=== PATIENT | female | born 1985 | race Caucasian/White ===

== ENCOUNTER 2020-01-23 13:31 | Outpatient (REF) | payer OTHER, SELFPAY ==
[2020-01-23 16:41] LABS: MANUAL DIFF FLAG NO
[2020-01-23 16:46] LABS: Basophils Percent Auto 0.5 % (0-2); Eosinophils Absolute Auto 0.1 X10*3/uL (0.0-0.4); Eosinophils Percent Auto 1.9 % (0-4); Hematocrit 44.2 % (37-47); Hemoglobin 14.5 g/dl (12.0-16.0); Imm Gran Abs Auto 0.03 X10*3/uL (0.00-0.03); Imm Gran Pct Auto 0.5 % (0.0-0.4); Lymphocytes Absolute Auto 1.8 X10*3/uL (1.2-4.9); Lymphocytes Percent Auto 31.1 % (20-40); Mean Corpuscular HGB Conc 32.8 g/dl (31.0-35.0); Mean Corpuscular Hemoglobin 29.3 pg (27.0-33.0); Mean Corpuscular Volume 89.3 fL (80-98); Mean Platelet Volume 9.6 fL (9.4-12.3); Monocytes Absolute Auto 0.3 X10*3/uL (0.1-1.2); Monocytes Percent Auto 5.9 % (2-11); Neutrophils Absolute Auto 3.5 X10*3/uL (2.0-8.3); Neutrophils Percent Auto 60.1 % (45-73); Platelet Count 238 X10*3/uL (160-400); Red Blood Count 4.95 X10*6/uL (4.20-5.50); Red Cell Distribution Width 11.9 % (11.0-16.0); White Blood Count 5.8 X10*3/uL (4.8-10.8)
[2020-01-23 17:11] LABS: Alanine Aminotransferase 18 U/L (0-31); Albumin Level 4.2 g/dL (3.5-5.0); Alkaline Phosphatase 63 U/L (39-117); Anion Gap 11 (12-20); Aspartate Amino Transferase 19 U/L (5-31); Bilirubin Total 0.5 mg/dL (0.0-1.0); Blood Urea Nitrogen 8 mg/dL (9-16); Calcium 8.4 mg/dL (8.4-10.2); Carbon Dioxide 29 mmol/L (22-29); Chloride 105 mmol/L (96-108); Estimated Glomerular Filt Rate > 60; Glucose Random 81 mg/dL (60-115); Potassium 4.3 mmol/l (3.3-5.1); Sodium 141 mmol/L (135-145); Total Protein 7.1 g/dL (6.5-8.0)
[2020-01-23 17:31] LABS: T4 Thyroxine 10.4 ug/dL (4.5-12.0); Thyroid Stimulating Hormone 1.07 uIU/mL (0.32-4.0)
== END 2020-01-23 13:32 | disposition home or self-care (01) ==
LOC: HO.HMGCLDS 13:31
PROVIDERS: PCP Internal Medicine; Visit Provider Internal Medicine
DX: E03.9 Hypothyroidism, unspecified (principal); Z00.00 Encounter for general adult medical examination without abnormal findings; J45.909 Unspecified asthma, uncomplicated
CPT/HCPCS: 36415; 80053; 84436; 84443; 85025

== ENCOUNTER 2020-08-07 17:09 | Outpatient (REF) | payer OTHER, SELFPAY ==
--- NOTE | ~2020-08-07 | XR_ITS ---
EXAMINATION: XR thoracic spine 3V, XR lumbar spine 2-3V, XR cervical spine 3V CLINICAL INFORMATION: Dorsalgia. COMPARISON: None. TECHNIQUE: AP, lateral and open-mouth views of the cervical spine. AP and lateral thoracic spine with swimmer's views. Lumbosacral spine 3 views. FINDINGS: CERVICAL SPINE: Alignment is normal. No bony abnormality is seen. Vertebral body heights are maintained. Disc spaces are well-maintained. No evidence for facet arthropathy. The prevertebral soft tissues are normal. THORACIC SPINE: Normal alignment. No bony abnormality. Vertebral body heights are maintained. Disc spaces are normal. The paravertebral soft tissues are unremarkable. LUMBOSACRAL SPINE: 3 views of lumbosacral spine are also normal. Normal alignment. Vertebral body heights are maintained. Posterior elements are intact. Disc spaces are normal. The paravertebral soft tissues are normal. The sacroiliac joints are unremarkable in appearance. XR/XR lumbar spine 2-3V IMPRESSION: Normal examination.
--- NOTE | ~2020-08-07 | XR_ITS ---
EXAMINATION: XR thoracic spine 3V, XR lumbar spine 2-3V, XR cervical spine 3V CLINICAL INFORMATION: Dorsalgia. COMPARISON: None. TECHNIQUE: AP, lateral and open-mouth views of the cervical spine. AP and lateral thoracic spine with swimmer's views. Lumbosacral spine 3 views. FINDINGS: CERVICAL SPINE: Alignment is normal. No bony abnormality is seen. Vertebral body heights are maintained. Disc spaces are well-maintained. No evidence for facet arthropathy. The prevertebral soft tissues are normal. THORACIC SPINE: Normal alignment. No bony abnormality. Vertebral body heights are maintained. Disc spaces are normal. The paravertebral soft tissues are unremarkable. LUMBOSACRAL SPINE: 3 views of lumbosacral spine are also normal. Normal alignment. Vertebral body heights are maintained. Posterior elements are intact. Disc spaces are normal. The paravertebral soft tissues are normal. The sacroiliac joints are unremarkable in appearance. XR/XR thoracic spine 3V IMPRESSION: Normal examination.
--- NOTE | ~2020-08-07 | XR_ITS ---
EXAMINATION: XR thoracic spine 3V, XR lumbar spine 2-3V, XR cervical spine 3V CLINICAL INFORMATION: Dorsalgia. COMPARISON: None. TECHNIQUE: AP, lateral and open-mouth views of the cervical spine. AP and lateral thoracic spine with swimmer's views. Lumbosacral spine 3 views. FINDINGS: CERVICAL SPINE: Alignment is normal. No bony abnormality is seen. Vertebral body heights are maintained. Disc spaces are well-maintained. No evidence for facet arthropathy. The prevertebral soft tissues are normal. THORACIC SPINE: Normal alignment. No bony abnormality. Vertebral body heights are maintained. Disc spaces are normal. The paravertebral soft tissues are unremarkable. LUMBOSACRAL SPINE: 3 views of lumbosacral spine are also normal. Normal alignment. Vertebral body heights are maintained. Posterior elements are intact. Disc spaces are normal. The paravertebral soft tissues are normal. The sacroiliac joints are unremarkable in appearance. XR/XR cervical spine 3V IMPRESSION: Normal examination.
== END 2020-08-07 17:10 | disposition home or self-care (01) ==
LOC: HO.XRAY 17:09
PROVIDERS: PCP Internal Medicine; Visit Provider Internal Medicine
DX: M54.9 Dorsalgia, unspecified (principal)
CPT/HCPCS: 72040; 72072; 72100

== ENCOUNTER 2020-09-19 17:00 | Outpatient (RCR) | payer OTHER, SELFPAY ==
--- NOTE | 2020-09-05 18:04 | MHC.PT.EP ---
[facility] [place] Office [place] Office [place] Office [address] [phone] F: [phone] F: [phone] F: [phone] F: [phone] Physical Therapy Plan of Care Date of Evaluation: Date of Surgery: Diagnosis: This is a 35 yo female presenting to skilled PT with a script for pain in t-spine. Assessment: This is a 35 yo female presenting to skilled PT with a script for pain in t-spine. Pain started 3 years ago when patient reports her back went out when looking down in standing. Since then this happens once or twice a year and pain is debilitating for a few days following. Pain is usually central at thoracic spine and is described as burning. It then radiates to the front/ribs and described as stabbing. Pain alleviates itself with stretching after a few days and she has no pain at eval today or since the last incident a month ago when lifting a plastic bowl. Assessment reveals pain that is not present at eval but can be debilitating. She demos decreased thoracic ROM but WNL UE and lumbar ROM, decreased scap stab and UB strength and decreased thoracic joint mobility. She is a good candidate for skilled PT 2x/wk for 5wks in order to improve strength, improve thoracic mobility and reduce the occurrence of debilitating pain. Frequency and Duration: The patient will be seen 2x/wk for 5wks Short Term Goals: I in HEP Proper scap set without cuing from PT Touch Up Painter Hand Goals: Patient will demo proper squatting and lifting techniques without pain or cuing Patient will demo WNL ROM and strength Good thoracic joint mobility with mobilization No occurrence of pain for 4 weeks Treatment Plan: Modalities to reduce pain, spasms and effusion. Manual therapy to restore motion and function. Therapeutic exercise to improve strength and flexibility. Neuromuscular re-education for posture and balance. Therapeutic activities to return to functional activities of daily living. Electronically signed by: Leatha Navarrete PT Please sign and return to therapist. Thank you for your referral.
--- NOTE | 2020-09-26 17:24 | MHC.PT.DC ---
[facility] [place] Office [place] Office [place] Office [address] [phone] F: [phone] F: [phone] F: [phone] F: [phone] Physical Therapy Discharge Report Diagnosis: This is a 35 yo female presenting to skilled PT with a script for pain in t-spine. Date of Surgery: Date of Evaluation: 09/05/20 Date of Discharge: 09/26/20 Treatments to Date: 2 Cancellations to Date: 0 No Shows to Date: 0 Discharge Status: Achieved Goals Improved Function Independent with HEP Patient Elected to Stop Discharge Summary: Patient without any pain throughout the session. Updated HEP and provided printouts at the last tx. Plan was to trial prone work next session however patient called and reported no pain and would like to DC at this time. DC to HEP Electronically signed by: Leatha Navarrete PT Please sign and return to therapist. Thank you for your referral.
== END 2020-09-26 17:25 | disposition home or self-care (01) ==
LOC: HO.PTCHIC 17:00
PROVIDERS: PCP Internal Medicine; Visit Provider Internal Medicine
DX: M54.6 Pain in thoracic spine (principal)
CPT/HCPCS: 97110; 97162

== ENCOUNTER 2021-04-24 10:03 | Outpatient (REF) | payer OTHER, SELFPAY ==
[2021-04-24 11:18] LABS: Appearance Urine CLOUDY; Color Urine YELLOW; Glucose Urine UA NEG (NEG); Leukocyte Esterase Urine TRACE (NEG); Nitrite Urine NEG (NEG); UACC Culture Trigger YES; Urine Blood TRACE (NEG); Urine Ketones NEG (NEG); Urine Protein TRACE MG/DL (NEG-TRACE)
[2021-04-24 11:44] LABS: Bacteria Urine 3+ /LPF; Squamous Epithelial Cell Urine 4+ /LPF
== END 2021-04-24 10:04 | disposition home or self-care (01) ==
LOC: HO.LAB 10:03
PROVIDERS: PCP Internal Medicine; Visit Provider Internal Medicine
DX: R30.0 Dysuria (principal)
CPT/HCPCS: 81001; 87086; 87088; 87186

== ENCOUNTER 2021-09-23 10:58 | Outpatient (REF) | payer OTHER, SELFPAY ==
[2021-09-23 11:25] LABS: Binax Internal Control QC Valid; Binax Now Covid-19 Ag Negative (Negative)
== END 2021-09-23 10:59 | disposition home or self-care (01) ==
LOC: HO.HMGCLDS 10:58
PROVIDERS: PCP Internal Medicine; Visit Provider Physician Assistant
DX: Z20.822 Contact with and (suspected) exposure to COVID-19 (principal); J06.9 Acute upper respiratory infection, unspecified
CPT/HCPCS: 87811; C9803

== ENCOUNTER → 2021-12-13 10:04 | Outpatient (REF) | payer OTHER, SELFPAY ==
--- NOTE | 2021-12-13 10:06 | CA_ITS ---
Acquisition Time: 2021-12-13 10:20:52 Total Exercise Time: 00:07:11 Test Indications: Chest Pain Medications: Protocol: RADHA Max HR: 181 BPM 98% of Pred: 183 BPM Max BP: 124/066 mmHG Max Work Load: 8.6 METS Exercise stress test with exercise 7 min 11 sec of Radha protocol, achieving 98% MPHR, 8.6 METs, with fatigue and request to stop, without anginal symptoms, with rare isolated PVC, with normotensive response to exercise, without EKG changes meeting criteria for ischemia. Test reviewed with Dr Ramos. Referred By: Humaira Maria Overread By: SHANELLE CARRASQUILLO
[2021-12-13 10:57] LABS: MANUAL DIFF FLAG NO
[2021-12-13 11:44] LABS: Basophils Percent Auto 0.5 % (0-2); Eosinophils Absolute Auto 0.1 X10*3/uL (0.0-0.4); Eosinophils Percent Auto 1.2 % (0-4); Hemoglobin 14.3 g/dl (12.0-16.0); Imm Gran Abs Auto 0.05 X10*3/uL (0.00-0.03); Imm Gran Pct Auto 0.6 % (0.0-0.4); Lymphocytes Absolute Auto 3.1 X10*3/uL (1.2-4.9); Lymphocytes Percent Auto 34.8 % (20-40); Mean Corpuscular Hemoglobin 28.6 pg (27.0-33.0); Mean Platelet Volume 9.3 fL (9.4-12.3); Monocytes Absolute Auto 0.6 X10*3/uL (0.1-1.2); Monocytes Percent Auto 6.4 % (2-11); Neutrophils Percent Auto 56.5 % (45-73); Platelet Count 280 X10*3/uL (160-400); Red Cell Distribution Width 12.3 % (11.0-16.0); White Blood Count 8.9 X10*3/uL (4.8-10.8)
[2021-12-13 11:56] LABS: Appearance Urine Turbid; Color Urine Yellow; Glucose Urine UA Negative (Negative); Leukocyte Esterase Urine Large (3+) (Negative); Nitrite Urine Negative (Negative); Specific Gravity - Urine 1.015 (1.005-1.025); UMIC TRIGGER UACC YES; Urine Blood Negative (Negative); Urine Ketones Negative (Negative); Urine Protein Negative (Neg-Trace)
[2021-12-13 12:04] LABS: Bacteria Urine 4+ (None Seen); RBC Urine 0-2 /HPF (0-2); Squamous Epithelial Cell Urine >20 /HPF (0-2); UACC Culture Trigger YES; WBC Urine 21-50 /HPF (0-5)
[2021-12-13 12:25] LABS: Alanine Aminotransferase 46 U/L (0-31); Albumin Level 4.3 g/dL (3.5-5.0); Alkaline Phosphatase 82 U/L (39-117); Anion Gap 16 (12-20); Aspartate Amino Transferase 22 U/L (5-31); Bilirubin Total 0.6 mg/dL (0.0-1.0); Blood Urea Nitrogen 9 mg/dL (9-16); Calcium 9.2 mg/dL (8.4-10.2); Carbon Dioxide 23 mmol/L (22-29); Chloride 104 mmol/L (96-108); Cholesterol 217 mg/dL; Estimated Glomerular Filt Rate > 60; Glucose Random 93 mg/dL (60-115); HDL Cholesterol 41 mg/dL; LDL Cholesterol Calculated 140 mg/dl; Potassium 4.4 mmol/L (3.3-5.1); Sodium 139 mmol/L (135-145); Total Protein 7.3 g/dL (6.5-8.0); Triglycerides 184 mg/dL; Uric Acid 4.8 mg/dL (2.4-5.7)
[2021-12-13 12:33] LABS: Free T4 (Free Thyroxine) 1.22 ng/dL (0.71-1.85); Vitamin D 25-OH Total 24.7 ng/mL (>30)
[2021-12-13 13:03] LABS: Folate 13.3 ng/mL (> or = 4.0); Vitamin B12 240 pg/mL (200-900)
== END ==
LOC: HO.CARD 10:04
PROVIDERS: PCP Internal Medicine; Visit Provider Internal Medicine
DX: R07.9 Chest pain, unspecified (principal); M10.9 Gout, unspecified; E03.9 Hypothyroidism, unspecified; K21.9 Gastro-esophageal reflux disease without esophagitis; E78.00 Pure hypercholesterolemia, unspecified
CPT/HCPCS: 36415; 80053; 80061; 81001; 82306; 82607; 82746; 84439; 84443; 84550; 85025; 87086; 93017

== ENCOUNTER 2021-12-27 09:36 | Outpatient (REF) | payer OTHER, SELFPAY ==
--- NOTE | ~2021-12-27 | US_ITS ---
EXAMINATION: US ABDOMEN COMPLETE CLINICAL INFORMATION: Elevated liver function tests. COMPARISON: None TECHNIQUE: Real-time imaging of the abdominal viscera. FINDINGS: PANCREAS: Normal. ABDOMINAL AORTA: The proximal, mid, and distal segments are normal in caliber. INFERIOR VENA CAVA: Visualized portions are normal. LIVER: Diffusely increased hepatic echogenicity. The liver is normal in size. The liver contour is normal. No focal hepatic lesion. There is no intrahepatic biliary duct dilatation seen. GALLBLADDER: Normal. The gallbladder is physiologically distended without evidence of stones, sludge, polyps, wall thickening or pericholecystic fluid. COMMON BILE DUCT: Normal in caliber measuring 0.2 cm in diameter. RIGHT KIDNEY: Normal. No hydronephrosis. No renal calculi or focal parenchymal lesions. The kidney measures 10.0 cm in maximum dimension. LEFT KIDNEY: Normal. No hydronephrosis. No renal calculi or focal parenchymal lesions. The kidney measures 10.3 cm in maximum dimension. SPLEEN: Normal. The spleen measures 7.9 cm in maximum dimension. FREE FLUID: None. US/US abdomen complete IMPRESSION: Mild but diffusely increased hepatic echogenicity suggesting diffuse hepatic steatosis. No biliary ductal dilatation.
== END 2021-12-27 09:37 | disposition home or self-care (01) ==
LOC: HO.HMGCX 09:36
PROVIDERS: PCP Internal Medicine; Visit Provider Internal Medicine
DX: R79.89 Other specified abnormal findings of blood chemistry (principal)
CPT/HCPCS: 76700

== ENCOUNTER 2022-06-10 13:05 | Outpatient (REF) | payer OTHER, SELFPAY | END 2022-06-10 13:06 | disposition home or self-care (01) | LOC: HO.SH 13:05 | PROVIDERS: Visit Provider Internal Medicine | DX: H90.A31 Mixed conductive and sensorineural hearing loss, unilateral, right ear with restricted hearing on the contralateral side (principal); H90.A12 Conductive hearing loss, unilateral, left ear with restricted hearing on the contralateral side | CPT/HCPCS: 92557; 92567 ==

== ENCOUNTER 2022-09-02 16:13 | Outpatient (REF) | payer OTHER, SELFPAY ==
--- NOTE | ~2022-09-02 | US_ITS ---
EXAMINATION: US LOWER EXTREMITY, NONVASCULAR, RIGHT CLINICAL INFORMATION: Right lower extremity mass at the level of the knee. COMPARISON: None available. TECHNIQUE: High-frequency linear ultrasound transducer was used to examine the area of clinical concern as pointed out by the patient. FINDINGS: There is a small hyperechoic 5 x 6 x 7 mm mass in the subcutaneous tissue. Differential would include a lipoma versus a hematoma. No other abnormality is seen. US/US extremity nonvascular IMPRESSION: Small hyperechoic mass as described above. If there is clinical concern, MRI could always be performed for better characterization.
== END 2022-09-02 16:14 | disposition home or self-care (01) ==
LOC: HO.US 16:13
PROVIDERS: PCP Internal Medicine; Visit Provider Nurse Practitioner Family
DX: R22.41 Localized swelling, mass and lump, right lower limb (principal)
CPT/HCPCS: 76882

== ENCOUNTER 2022-09-26 16:02 | Outpatient (AMB) | payer OTHER, SELFPAY ==
[2022-09-26 16:02] VITALS: BP 122/74; PULSE 68; O2SAT 98; BMI 31.6
--- NOTE | 2022-09-26 16:02 | A.OFFPC_ITS ---
Vital Signs 09/26/22 16:02 Height 5 ft 2 in Weight 173 lb BMI 31.6 BP 122/74 Blood Pressure Location Lt brachial Position Sitting Pulse 68 Pulse Source Pulse Oximeter Pulse Oximetry (%) 98 Oxygen Delivery Method Room Air Intake Visit Reasons: Rash under belly, bilateral feet pain, hypothyroid, ASthma Allergies Iodinated Contrast Media [IV CONTRAST] Allergy (Severe, Verified 09/26/22 16:02) ANAPHYLAXIS iodine Allergy (Unknown, Verified 09/26/22 16:02) Hives CT Scan Dye Allergy (Unknown, Uncoded 09/26/22 16:02) Hives dust mite Allergy (Unknown, Uncoded 09/26/22 16:02) Itching Medication List - Last Reconciled 09/26/22 by Humaira Maria, albuterol sulfate 90 mcg/actuation (ProAir HFA) 2 puffs inhalation Q6H PRN cyclobenzaprine 5 mg PO BEDTIME PRN diazepam 2 mg PO BID PRN fluticasone propionate 110 mcg/actuation (Flovent HFA) 1 puff inhalation BID meloxicam 15 mg PO DAILY 90 days sumatriptan succinate (Imitrex) 50 mg orally QD PRN; Synthroid (levothyroxine) 100 mcg PO DAILY 90 days NS Tobacco use date assessed: 03/28/22 Dental Screening Dental Screen Date: 09/26/22 Did you have a dental visit in the last 12 months?: Yes Did you have a dental problem in the last 6 months where you did not have access to dental care?: No Was dental information given to patient?: Patient has dentist HPI hypothyroid, ASthma HPI Details 37-year-old obese female with migraine, hypothyroidism asthma fatty liver hypercholesterolemia B12 deficiency vitamin-D deficiency GERD last seen Fe rust2022 patient had physical at that time. Blood work was requested.. Review of the notes recently had right lower extremity mass and an ultrasound was done revealing a subcutaneous tissue mass and a question of lipoma versus hematoma. Patient also had a recent hearing test which showed sensorineural hearing loss and has recommended hearing aid. Patient was also seen in April for upper back pain muscular and was prescribed a muscle relaxant.. Patient states that the back has resolved, as for mass on the right posterior knee resolving and no pain. Patient complains of pain on the feet underneath deny any fall or trauma also have a rash on abdominal fold. [facility] Medical History Anxiety and depression Chest pain GERD (gastroesophageal reflux disease) History of Hypothyroid LFT elevation Migraine Overweight (BMI 25.0-29.9) Thoracic back pain Surgical History H/O eye surgery History of stapedectomy Family History (Updated 09/26/22 @ 16:03 by Nayely Javier, [facility]) Maternal Aunt Heart attack Thyroid cancer Sister Age: 43 Breast cancer, Onset Age: 36 Father Alcohol abuse Mental health disorder Substance use disorder Social History Housing: House Alcohol intake: current Alcohol intake frequency: holidays/special occasions only Patient Tobacco Use Status: Never used Tobacco e-Cigarette/Vaping Use: Never Used Second Hand Smoke Exposure: No service: No Current occupational status: employed Current occupational exposures/hazards: No Cognitive needs: No Hearing needs: No Vision needs: No Questionnaire PHQ-9 Over the last 2 weeks, how often have you been bothered by any of the following problems? 1. Little interest or pleasure in doing things: not at all 2. Feeling down, depressed, or hopeless: not at all 3. Trouble falling or staying asleep, or sleeping too much: not at all 4. Feeling tired or having little energy: not at all 5. Poor appetite or overeating: not at all 6. Feeling bad about yourself - or that you are a failure or have let yourself or your family down: not at all 7. Trouble concentrating on things, such as reading the newspaper or watching television: not at all 8. Moving or speaking so slowly that other people could have noticed. Or the opposite - being so fidgety or restless that you have been moving around a lot more than usual: not at all (nighttime ) 9. Thoughts that you would be better off or of hurting yourself in some way: not at all Total score: 0 Depression Screening Interpretation: Negative 18315 - PHQ-9 Billing: Yes Source: Developed by Drs. Jluis Mcmillan, Rose Mary Vargas, Killian Delong and colleagues, with an educational debo from [employer]is Bittar. Thrive Questionnaire Date Thrive assessed: 04/28/22 AUDIT C Alcohol Use Questionnaire (AUDIT-C) 1. How often do you have a drink containing alcohol?: Never 3. How often do you have six or more drinks on one occasion?: Never Total Score: 0 PATEL-7 AMB Questionnaire PATEL-7 Date PATEL - 7 assessed: 04/28/22 Source: Developed by Drs. Jluis Mcmillan, Rose Mary Vargas, Killian Delong and colleagues, with an educational debo from Alexis Bittar. Physical exam (Primary Care) Vital Signs: Last Vital Signs Pulse 68 09/26/22 16:02 BP 122/74 09/26/22 16:02 Pulse Ox 98 09/26/22 16:02 Oxygen Delivery Method Room Air 09/26/22 16:02 BMI result Body Mass Index 31.6 Tobacco/Smoking Status: Tobacco use Status Tobacco use date assessed 03/28/22 09/26/22 16:06 Patient Tobacco Use Status Never used Tobacco 09/26/22 16:06 e-Cigarette/Vaping Use Never Used 09/26/22 16:06 PHQ-9: PHQ-9 Score PHQ-9: Total score 0 09/26/22 16:06 Depression Screening Interpretation: Negative Thrive Assessment: Date of Thrive Assessment Date Thrive assessed 04/28/22 09/26/22 16:06 Const General: alert; No acute distress Eyes Conjunctivae: conjunctivae normal Resp Auscultation: clear to auscultation bilaterally Cardio Rate: regular rate Rhythm: regular rhythm GI Inspection: Yes normal to inspection Extrem General: Yes normal to inspection and No edema Assessment and Plan Assessment & Plan (1) Localized swelling, mass and lump, right lower limb: Comment: Hematoma versus lipoma Code(s): R22.41 - Localized swelling, mass and lump, right lower limb Plan: Mass is getting smaller, reassurance (2) Low back pain: Code(s): M54.50 - Low back pain, unspecified Plan: Resolved (3) Migraine: Code(s): G43.909 - Migraine, unspecified, not intractable, without status migrainosus Plan: Stable (4) Hypercholesterolemia: Code(s): E78.00 - Pure hypercholesterolemia, unspecified Plan: Avoid fried foods, chicken skin, eggs, butter margarine, pastries and meat. Be it pork or beef they have a lot of cholesterol reminded about blood work LDL goal of less than 130 and triglyceride of less than 150 (5) Fatty liver: Code(s): K76.0 - Fatty (change of) liver, not elsewhere classified Plan: Low-fat diet and exercise (6) Hypothyroid: Code(s): E03.9 - Hypothyroidism, unspecified Qualifiers: Hypothyroidism type: acquired Qualified Code(s): E03.9 - Hypothyroidism, unspecified Plan: Continue with thyroid medication advised blood work to be done (7) Asthma: Code(s): J45.909 - Unspecified asthma, uncomplicated Qualifiers: Asthma severity: mild Asthma persistence: intermittent Asthma complication type: uncomplicated Qualified Code(s): J45.20 - Mild intermittent asthma, uncomplicated Plan: Continue with inhaler as needed controlled (8) GERD (gastroesophageal reflux disease): Code(s): K21.9 - Gastro-esophageal reflux disease without esophagitis Qualifiers: Esophagitis presence: without esophagitis Qualified Code(s): K21.9 - Gastro-esophageal reflux disease without esophagitis Plan: Avoid the foods that causes that usually spicy foods, tomato products, juices, coffee, soda and foods that your sensitive to. After eating do not lie down, allow 3-4 hours before in lie down. And keep the head of bed above 30 degrees to avoid the acid from going up. (9) Hearing deficit: Comment: Speech and hearing 2022 Code(s): H91.90 - Unspecified hearing loss, unspecified ear Plan: Patient has just had a test and the asking for ENT medical clearance (10) Tinea corporis: Code(s): B35.4 - Tinea corporis Plan: Cream and antifungal powder sent in (11) Plantar fasciitis: Code(s): M72.2 - Plantar fascial fibromatosis Plan: Information about plantar fasciitis given, conservative treatment of exercises Orders: Referrals Ear/Nose/Throat Referral H91.90 - Unspecified hearing loss, unspecified ear Medications: New clotrimazole 1% 1 appl topical BID 4 weeks 45 grams 0RF B35.4 - Tinea corporis miconazole nitrate 2% (Zeasorb AF) 1 appl topical BID 85 grams 0RF B35.4 - Tinea corporis Coding Level of Care Code Est Pt Level 4 (36273) Diagnoses Localized swelling, mass and lump, right lower limb R22.41 Low back pain M54.50 Migraine G43.909 Hypercholesterolemia E78.00 Fatty liver K76.0 Hypothyroid E03.9 Hypothyroidism type: acquired Asthma J45.20 Asthma severity: mild Asthma persistence: intermittent Asthma complication type: uncomplicated GERD (gastroesophageal reflux disease) K21.9 Esophagitis presence: without esophagitis Hearing deficit H91.90 Tinea corporis B35.4 Plantar fasciitis M72.2
== END 2022-09-26 16:34 | disposition home or self-care (01) ==
PROVIDERS: PCP Internal Medicine; Visit Provider Internal Medicine
DX: R22.41 Localized swelling, mass and lump, right lower limb (principal); G43.909 Migraine, unspecified, not intractable, without status migrainosus; E03.9 Hypothyroidism, unspecified; J45.20 Mild intermittent asthma, uncomplicated
CPT/HCPCS: 99214

== ENCOUNTER 2022-09-26 16:30 | Outpatient (REF) | payer OTHER, SELFPAY ==
[2022-09-26 18:22] LABS: Alanine Aminotransferase 19 U/L (0-31); Albumin Level 4.1 g/dL (3.5-5.0); Alkaline Phosphatase 74 U/L (39-117); Anion Gap 15 (12-20); Aspartate Amino Transferase 18 U/L (5-31); Bilirubin Total 0.5 mg/dL (0.0-1.0); Blood Urea Nitrogen 8 mg/dL (9-16); Calcium 9.2 mg/dL (8.4-10.2); Carbon Dioxide 23 mmol/L (22-29); Chloride 107 mmol/L (96-108); Cholesterol 183 mg/dL; Estimated Glomerular Filt Rate > 60; Glucose Random 79 mg/dL (60-115); HDL Cholesterol 43 mg/dL; LDL Cholesterol Calculated 126 mg/dl; Potassium 3.7 mmol/L (3.3-5.1); Sodium 141 mmol/L (135-145); Total Protein 7.1 g/dL (6.5-8.0); Triglycerides 71 mg/dL
[2022-09-26 18:31] LABS: Free T4 (Free Thyroxine) 1.05 ng/dL (0.71-1.85); Thyroid Stimulating Hormone 2.62 uIU/mL (0.32-4.0); Vitamin D 25-OH Total 24.2 ng/mL (>30)
[2022-09-26 18:47] LABS: Folate 12.5 ng/mL (> or = 4.0); Vitamin B12 325 pg/mL (200-900)
== END 2022-09-26 16:31 | disposition home or self-care (01) ==
LOC: HO.LAB 16:30
PROVIDERS: PCP Internal Medicine; Visit Provider Internal Medicine
DX: E78.00 Pure hypercholesterolemia, unspecified (principal); E53.8 Deficiency of other specified B group vitamins
CPT/HCPCS: 36415; 80053; 80061; 82306; 82607; 82746; 84439; 84443

== ENCOUNTER 2023-04-03 16:17 | Outpatient (AMB) | payer OTHER, SELFPAY ==
--- NOTE | 2023-04-03 16:26 | A.OFFPC_ITS ---
Vital Signs 04/03/23 16:27 Height 5 ft 2 in Weight 192 lb BMI 35.1 BP 102/70 Blood Pressure Location Lt brachial Position Sitting Pulse 75 Pulse Source Pulse Oximeter Pulse Oximetry (%) 98 Oxygen Delivery Method Room Air Intake Visit Reasons: Annual exam Allergies Iodinated Contrast Media [IV CONTRAST] Allergy (Severe, Verified 09/26/22 16:02) ANAPHYLAXIS iodine Allergy (Unknown, Verified 09/26/22 16:02) Hives CT Scan Dye Allergy (Unknown, Uncoded 09/26/22 16:02) Hives dust mite Allergy (Unknown, Uncoded 09/26/22 16:02) Itching Medication List - Last Reconciled 04/03/23 by Humaira Maria MD albuterol sulfate 90 mcg/actuation (ProAir HFA) 2 puffs inhalation Q6H PRN clotrimazole 1% 1 appl topical BID 4 weeks cyclobenzaprine 5 mg PO BEDTIME PRN diazepam 2 mg PO BID PRN fluticasone propionate 110 mcg/actuation (Flovent HFA) 1 puff inhalation BID meloxicam 15 mg PO DAILY 90 days miconazole nitrate 2% (Zeasorb AF) 1 appl topical BID sumatriptan succinate (Imitrex) 50 mg orally QD PRN; Synthroid (levothyroxine) 100 mcg PO DAILY 90 days NS Tobacco use date assessed: 03/28/22 [facility] Annual exam HPI Details 38-year-old obese female with a history of hypercholesterolemia fatty liver hypothyroidism asthma GERD and migraine coming in for physical exam last seen in September 2022. Noted 20 lb weight gain. complains of having more COTA/migraine and wants FMLA filled. occ dizzy just got and not sleeping, has hearing aid.lying down . for the migraine 3 days a month 1 year. [facility] Medical History (Updated 04/03/23 @ 16:34 by Humaira Maria MD) Obesity (BMI 30.0-34.9) LFT elevation Chest pain Thoracic back pain History of Overweight (BMI 25.0-29.9) Anxiety and depression Migraine GERD (gastroesophageal reflux disease) Hypothyroid Surgical History H/O eye surgery History of stapedectomy Family History (Updated 09/26/22 @ 16:03 by Nayely Javier CMA) Maternal Aunt Heart attack Thyroid cancer Sister Age: 43 Breast cancer, Onset Age: 36 Father Alcohol abuse Mental health disorder Substance use disorder Social History (Updated 04/03/23 @ 16:38 by Humaira Maria MD) Housing: House Alcohol intake: current Alcohol intake frequency: holidays/special occasions only Comment: once Q 2 months1-2 beers Patient Tobacco Use Status: Never used Tobacco e-Cigarette/Vaping Use: Never Used Second Hand Smoke Exposure: No service: No Current occupational status: employed Current occupational exposures/hazards: No Cognitive needs: No Hearing needs: No Vision needs: No Questionnaire PHQ-9 Over the last 2 weeks, how often have you been bothered by any of the following problems? 1. Little interest or pleasure in doing things: nearly every day 2. Feeling down, depressed, or hopeless: more than half the days 3. Trouble falling or staying asleep, or sleeping too much: nearly every day 4. Feeling tired or having little energy: nearly every day 5. Poor appetite or overeating: nearly every day 6. Feeling bad about yourself - or that you are a failure or have let yourself or your family down: several days 7. Trouble concentrating on things, such as reading the newspaper or watching television: nearly every day 8. Moving or speaking so slowly that other people could have noticed. Or the opposite - being so fidgety or restless that you have been moving around a lot more than usual: not at all 9. Thoughts that you would be better off or of hurting yourself in some way: not at all Total score: 18 [id number] - PHQ-9 Billing: Yes Source: Developed by Drs. Jluis Mcmillan, Rose Mary Vargas, Killian Delong and colleagues, with an educational debo from [employer]. Thrive Questionnaire Date Thrive assessed: 04/03/23 I am a: Patient What is your living situation today?: I have a steady place to live Within the past 12 months, did the food you bought not last and you didn't have the money to get more?: Never true Within the past 12 months, did you worry whether your food would run out before you got money to buy more?: Never true Do you have trouble paying for medicines?: No Do you have trouble getting transportation to medical appointments?: No Do you have trouble paying your heating and electricity bill?: No Do you have trouble taking care of your child, family member or friend?: No Do you have trouble with day-to-day activities such as bathing, preparing meals, shopping, managing finances, etc.?: No Are you currently unemployed and looking for a job?: No Are you interested in more education?: No Please select the resources that you would like help with: None Currently or been in a relationship where the following occur: no concerns reported THRIVE Score: 0 AUDIT C Alcohol Use Questionnaire (AUDIT-C) 1. How often do you have a drink containing alcohol?: Monthly or less 2. How many drinks containing alcohol do you have on a typical day when you are drinking?: 1 or 2 3. How often do you have six or more drinks on one occasion?: Never Total Score: 1 PATEL-7 AMB Questionnaire PATEL-7 Date PATEL - 7 assessed: 04/03/23 Feeling nervous, anxious, or on edge: 1 = Several days Not being able to stop or control worryin = Several days Worrying too much about different things: 1 = Several days Trouble relaxin = Not at all Being so restless that it is hard to sit still: 0 = Not at all Becoming easily annoyed or irritable: 1 = Several days Feeling afraid as if something awful might happen: 0 = Not at all Total PATEL-7 score (0-4 normal; 5-9 mild; 10-14 moderate; 15-21 severe): 4 Source: Developed by Drs. Jluis Mcmillan, Rose Mary Vargas, Killian Delong and colleagues, with an educational debo from [employer]. PATEL-7 Assessment Billing PATEL-7 Assessment Tool: PATEL-7 Assessment 59208 Review of Systems Const Denies poor appetite and Denies weakness Eyes Denies no additional complaints ENT Reports Normal hearing present, Denies dizziness, Denies nasal congestion, Denies tinnitus and Denies sore throat Card Denies chest pain, Denies syncope, Denies rapid heart rate and Denies dyspnea Resp Denies cough and Denies dyspnea GI Denies change in stool character, Reports constipation, Denies diarrhea, Denies nausea and Denies vomiting Denies urinary frequency, Denies difficulty voiding and Denies dysuria Neuro Reports Normal hearing present, Denies confusion, Denies dizziness, Denies syncope and Denies weakness Psych Denies confusion Physical exam (Primary Care) Vital Signs: Oxygen Delivery Method Room Air 04/03/23 16:27 BMI result Body Mass Index 35.1 Tobacco/Smoking Status: Tobacco use Status Tobacco use date assessed 03/28/22 04/03/23 16:27 Patient Tobacco Use Status Never used Tobacco 04/03/23 16:27 e-Cigarette/Vaping Use Never Used 04/03/23 16:27 Thrive Assessment: Date of Thrive Assessment Date Thrive assessed 04/28/22 04/03/23 16:27 Currently or been in a relationship where the following occur: no concerns reported Const General: No confusion Orientation/consciousness: No confusion HENMT Head: Yes normocephalic Ears: external ears normal and TM's normal bilaterally Face and sinus: Yes normal facial exam Mouth: moist mucous membranes Throat: Yes tonsils normal Eyes Conjunctivae: conjunctivae normal Pupils: Equal, round and reactive pupils present and Pupil accommodation reflex normal Direct Ophthalmoscopy: normal light reflex Neck Neck: No lymphadenopathy Thyroid: Thyroid normal Chest Chest palpation & inspection: normal inspection of the chest Resp Effort & Inspection: normal respiratory effort and no audible wheezes Auscultation: clear to auscultation bilaterally, no crackles, no wheezes and lung sounds not diminished Cardio Rate: regular rate Rhythm: regular rhythm Peripheral pulses: radial pulses present and dorsalis pedis present GI Palpation (GI): no masses Auscultation: normal bowel sounds and normoactive bowel sounds Rectal Exam - Female: deferred Skin General skin exam: no rashes or lesions noted Rashes: no rashes Neuro General: No confusion Cranial nerves: Yes Equal, round and reactive pupils present and Yes Normal hearing present Cognition (Neuro): normal cognition Gait exam (Neuro): Normal gait present Motor exam (neuro): 5/5 motor strength present throughout Deep tendon reflexes (DTR's): Right brachioradialis reflex intensity grade: 2+, Left brachioradialis reflex intensity grade: 2+, Right patellar reflex intensity grade: 2+ and Left patellar reflex intensity grade: 2+ Extrem General: No edema Assessment and Plan Assessment & Plan (1) Annual physical exam: Code(s): Z00.00 - Encounter for general adult medical examination without abnormal findings (2) Hypothyroid: Code(s): E03.9 - Hypothyroidism, unspecified Qualifiers: Hypothyroidism type: acquired Qualified Code(s): E03.9 - Hypothyroidism, unspecified Plan: Continue with thyroid medication will have to get blood work done (3) Asthma: Code(s): J45.909 - Unspecified asthma, uncomplicated Qualifiers: Asthma severity: mild Asthma persistence: intermittent Asthma complication type: uncomplicated Qualified Code(s): J45.20 - Mild intermittent asthma, uncomplicated Plan: Continue with the inhaler. And rinse mouth after controllers (4) Hypercholesterolemia: Code(s): E78.00 - Pure hypercholesterolemia, unspecified Plan: Avoid fried foods, chicken skin, eggs, butter margarine, pastries and meat. Be it pork or beef they have a lot of cholesterol LDL goal of less than 130 and triglyceride of less than 150. September blood work was normal (5) Obesity (BMI 30-39.9): Code(s): E66.9 - Obesity, unspecified Plan: Diet and exercise (6) Hearing deficit: Comment: Speech and hearing 2022 Code(s): H91.90 - Unspecified hearing loss, unspecified ear (7) GERD (gastroesophageal reflux disease): Code(s): K21.9 - Gastro-esophageal reflux disease without esophagitis Qualifiers: Esophagitis presence: without esophagitis Qualified Code(s): K21.9 - Gastro-esophageal reflux disease without esophagitis Orders: Orders Lipid Panel Today E03.9 - Hypothyroidism, unspecified, E78.00 - Pure hypercholesterolemia, unspecified Complete Blood Count Auto Diff Today E03.9 - Hypothyroidism, unspecified Comprehensive Met. Panel Today E03.9 - Hypothyroidism, unspecified Free T4 (Free Thyroxine) Today E03.9 - Hypothyroidism, unspecified Thyroid Stimulating Hormone Today E03.9 - Hypothyroidism, unspecified Vitamin B12 and Folate Today E03.9 - Hypothyroidism, unspecified Coding Level of Care Code Est Pt Prev Care 18-39y(99044) Diagnoses Annual physical exam Z00.00 Acquired hypothyroidism E03.9 Hypothyroidism type: acquired Mild intermittent asthma without complication J45.20 Asthma severity: mild Asthma persistence: intermittent Asthma complication type: uncomplicated Hypercholesterolemia E78.00 Obesity (BMI 30-39.9) E66.9 Hearing deficit H91.90 Gastroesophageal reflux disease without esophagitis K21.9 Esophagitis presence: without esophagitis Additional Codes PATEL-7 Assessment Billing - PATEL-7 Assessment Tool: PATEL-7 Assessment 22627 ([id number])
[2023-04-03 16:27] VITALS: BP 102/70; PULSE 75; O2SAT 98; BMI 35.1
== END 2023-04-03 16:57 | disposition home or self-care (01) ==
PROVIDERS: Visit Provider Internal Medicine
DX: Z00.00 Encounter for general adult medical examination without abnormal findings (principal); G43.909 Migraine, unspecified, not intractable, without status migrainosus; Z68.35 Body mass index [BMI] 35.0-35.9, adult; E66.9 Obesity, unspecified; E03.9 Hypothyroidism, unspecified; J45.20 Mild intermittent asthma, uncomplicated; E78.00 Pure hypercholesterolemia, unspecified; H91.90 Unspecified hearing loss, unspecified ear; K21.9 Gastro-esophageal reflux disease without esophagitis
CPT/HCPCS: 99395

== ENCOUNTER 2023-04-04 07:53 | Outpatient (REF) | payer OTHER, SELFPAY ==
[2023-04-04 08:37] LABS: MANUAL DIFF FLAG NO
[2023-04-04 09:21] LABS: Basophils Percent Auto 0.3 % (0-2); Eosinophils Absolute Auto 0.1 X10*3/uL (0.0-0.4); Eosinophils Percent Auto 1.2 % (0-4); Hematocrit 41.9 % (37.0-47.0); Hemoglobin 14.1 g/dl (12.0-16.0); Imm Gran Abs Auto 0.03 X10*3/uL (0.00-0.03); Imm Gran Pct Auto 0.3 % (0.0-0.4); Lymphocytes Absolute Auto 2.4 X10*3/uL (1.2-4.9); Lymphocytes Percent Auto 25.8 % (20-40); Mean Corpuscular HGB Conc 33.7 g/dl (31.0-35.0); Mean Corpuscular Hemoglobin 28.3 pg (27.0-33.0); Mean Corpuscular Volume 84.1 fL (80.0-98.0); Mean Platelet Volume 9.4 fL (9.4-12.3); Monocytes Absolute Auto 0.6 X10*3/uL (0.1-1.2); Monocytes Percent Auto 6.2 % (2-11); Neutrophils Absolute Auto 6.2 x10*3/uL (2.0-8.3); Neutrophils Percent Auto 66.2 % (45-73); Platelet Count 250 X10*3/uL (160-400); Red Blood Count 4.98 X10*6/uL (4.20-5.50); Red Cell Distribution Width 12.5 % (11.0-16.0); White Blood Count 9.4 X10*3/uL (4.8-10.8)
[2023-04-04 10:47] LABS: Alanine Aminotransferase 22 U/L (0-31); Albumin Level 4.2 g/dL (3.5-5.0); Alkaline Phosphatase 74 U/L (39-117); Anion Gap 14 (12-20); Aspartate Amino Transferase 16 U/L (5-31); Bilirubin Total 0.7 mg/dL (0.0-1.0); Blood Urea Nitrogen 10 mg/dL (9-16); Calcium 9.3 mg/dL (8.4-10.2); Carbon Dioxide 25 mmol/L (22-29); Chloride 104 mmol/L (96-108); Cholesterol 217 mg/dL (<200); Estimated Glomerular Filt Rate > 60; Glucose Random 100 mg/dL (60-115); HDL Cholesterol 41 mg/dL (>40); LDL Cholesterol Calculated 145 mg/dL (<100); Potassium 3.7 mmol/L (3.3-5.1); Sodium 139 mmol/L (135-145); Total Protein 7.4 g/dL (6.5-8.0); Triglycerides 159 mg/dL (<150)
[2023-04-04 10:57] LABS: Free T4 (Free Thyroxine) 1.11 ng/dL (0.71-1.85); Thyroid Stimulating Hormone 1.76 uIU/mL (0.32-4.0)
[2023-04-04 11:13] LABS: Folate 10.9 ng/mL (> or = 4.0); Vitamin B12 271 pg/mL (200-900)
== END 2023-04-04 07:54 | disposition home or self-care (01) ==
LOC: HO.LAB 07:53
PROVIDERS: PCP Internal Medicine; Visit Provider Internal Medicine
DX: E78.00 Pure hypercholesterolemia, unspecified (principal); E03.9 Hypothyroidism, unspecified
CPT/HCPCS: 36415; 80053; 80061; 82607; 82746; 84439; 84443; 85025

== ENCOUNTER 2024-01-17 00:13 | Emergency (ER) | payer OTHER, SELFPAY ==
[2024-01-17 00:22] VITALS: BP 120/55; PULSE 70; RESP 20; TEMP 36.7; O2SAT 98; BMI 34.7
[2024-01-17] MEDS: Amoxicillin/Potassium Clav 875 MG TABLET PO (01:08)
--- NOTE | 2024-01-17 01:13 | ED.ANIMALBIT ---
HPI - Animal Bite General Chief Complaint: Animal Bite Stated Complaint: cat scratch Time Seen by Provider: 01/17/24 00:48 Source: patient Mode of arrival: ambulatory Limitations: no limitations History of Present Illness ED Provider: suly HPI narrative: Apparently patient was breaking with the cat fight with her sister's per PE and she bit her while in process of breaking up the fight on her left leg and right leg CT is immunized last year with rabies and Cat is indoor Related Data Previous Rx's ?Medication ?Instructions ?Recorded albuterol sulfate 90 mcg/actuation 2 puff inhalation Q6H PRN 05/09/20 aerosol inhaler (ProAir HFA) shortness of breath or wheezing #8.5 grams fluticasone propionate 110 1 puff inhalation BID #12 grams 09/23/21 mcg/actuation HFA aerosol inhaler (Flovent HFA) clotrimazole 1 % topical cream 1 appl topical BID 4 weeks #45 09/26/22 grams meloxicam 15 mg tablet 15 mg PO DAILY 90 days #90 tabs 09/26/22 miconazole nitrate 2 % topical 1 appl topical BID #85 grams 09/26/22 powder (Zeasorb AF) diazepam 2 mg tablet 2 mg PO BID PRN anxiety #4 tabs 11/13/22 cyclobenzaprine 5 mg tablet 5 mg PO BEDTIME PRN muscle spasm 12/10/23 #14 tabs sumatriptan succinate 50 mg tablet 50 mg PO .COMPLEX PRN migraine 12/10/23 (Imitrex) headache #14 tabs Synthroid 100 mcg tablet 100 mcg PO DAILY 90 days #90 tabs 01/15/24 (levothyroxine) amoxicillin 875 mg-potassium 1 tab PO BID #20 tabs 01/17/24 clavulanate 125 mg tablet Allergies Allergy/AdvReac Type Severity Reaction Status Date / Time Iodinated Contrast Media Allergy Severe ANAPHYLAXIS Verified 01/17/24 00:27 [IV CONTRAST] iodine Allergy Unknown Hives Verified 01/17/24 00:27 CT Scan Dye Allergy Unknown Hives Uncoded 09/26/22 16:02 dust mite Allergy Unknown Itching Uncoded 09/26/22 16:02 Review of Systems Review of Systems: Yes all other systems are reviewed and are negative PMFSH Past Medical History Medical History Obesity (BMI 30.0-34.9) LFT elevation Chest pain Thoracic back pain History of Overweight (BMI 25.0-29.9) Anxiety and depression Migraine GERD (gastroesophageal reflux disease) Hypothyroid Surgical History H/O eye surgery History of stapedectomy Family History Family History Maternal Aunt Heart attack Thyroid cancer Sister Age: 44 Breast cancer, Onset Age: 36 Father Alcohol abuse Mental health disorder Substance use disorder Social History Social History Housing: House Alcohol intake: current Alcohol intake frequency: holidays/special occasions only Comment: once Q 2 months1-2 beerdave Patient Tobacco Use Status: Never used Tobacco Smoked in Last 30 Days: No e-Cigarette/Vaping Use: Never Used Second Hand Smoke Exposure: No Use of substances other than those prescribed or required for medical reasons: No Advance Directives: No Do you have a plan to hurt others: No Plan service: No Current occupational status: employed Current occupational exposures/hazards: No Cognitive needs: No Hearing needs: No Vision needs: No Physical Exam ED Vital Signs: Vital Signs - 24 hr 01/17/24 00:22 Temperature 98.0 F Pulse Rate 70 Respiratory Rate 20 Blood Pressure 120/55 L Pulse Oximetry 98 Oxygen Delivery Method Room Air BMI result Body Mass Index 34.7 Appearance: Alert. Oriented X3. No acute distress. CVS: Normal heart rate and rhythm. Pulses normal. Respiratory: No respiratory distress. Equal air entry bilateral, no wheezing/rales/rhonchi Abdomen: Soft and nontender. Bowel sounds are present, no mass palpable, no CVA tenderness Skin: Skin warm and dry. Normal skin color. Normal skin turgor. Extremities: No lower extremity edema. No calf tenderness cat bite rock on left lower leg in the right lower extremity Neuro: Oriented X 3. Medications Administered Discontinued Medications Generic Name Dose Route Start Last Admin Trade Name Freq PRN Reason Stop Dose Admin Amoxicillin/Clavulanate Potassium 875 mg 01/17/24 00:50 01/17/24 01:08 Amoxicillin/Potassium Clav 875 Mg Tablet PO 01/17/24 00:51 875 mg ONCE ONE Administration Discharge Plan Discharge Clinical Impression: Cat bite Patient Disposition: Home, Self-Care Instructions: Animal Bite (ED) Additional Instructions: Local care of the wound as advised Take antibiotic as prescribed Report to the ER if worsening of the pain/redness Prescriptions: New amoxicillin-pot clavulanate 875-125 mg tablet 1 tab PO BID Qty: 20 0RF No Action albuterol sulfate [ProAir HFA] 90 mcg/actuation HFA aerosol inhaler 2 puff inhalation Q6H PRN (Reason: shortness of breath or wheezing) Qty: 8.5 0RF diazepam 2 mg tablet 2 mg PO BID PRN (Reason: anxiety) Qty: 4 0RF sumatriptan succinate [Imitrex] 50 mg tablet 50 mg PO .COMPLEX PRN (Reason: migraine headache) Qty: 14 3RF Rx Instructions: 50 mg orally QD PRN; cyclobenzaprine 5 mg tablet 5 mg PO BEDTIME PRN (Reason: muscle spasm) Qty: 14 0RF levothyroxine [Synthroid] 100 mcg tablet 100 mcg PO DAILY 90 Days Qty: 90 3RF clotrimazole 1 % cream 1 appl topical BID 28 Days Qty: 45 0RF miconazole nitrate [Zeasorb AF] 2 % powder 1 appl topical BID Qty: 85 0RF meloxicam 15 mg tablet 15 mg PO DAILY 90 Days Qty: 90 1RF fluticasone propionate [Flovent HFA] 110 mcg/actuation HFA aerosol inhaler 1 puff inhalation BID Qty: 12 0RF Print Language: Macedonian
[2024-01-17 01:17] VITALS: BP 120/55; PULSE 70; RESP 20; TEMP 36.7; O2SAT 98
== END 2024-01-17 01:18 | disposition home or self-care (01) ==
LOC: HO.ED 01:12
PROVIDERS: Emergency Provider Internal Medicine; PCP Internal Medicine
DX: S80.812A Abrasion, left lower leg, initial encounter (principal); W55.03XA Scratched by cat, initial encounter; Y93.89 Activity, other specified; Y92.89 Other specified places as the place of occurrence of the external cause; Y99.8 Other external cause status
CPT/HCPCS: 99283; 99284

== ENCOUNTER 2024-04-14 13:07 | Outpatient (AMB) | payer OTHER, SELFPAY ==
[2024-04-14 13:14] VITALS: BP 110/70; PULSE 90; TEMP 36.1; O2SAT 97; BMI 35.7
--- NOTE | 2024-04-14 13:14 | A.OFFPC_ITS ---
Vital Signs 04/14/24 13:14 Height 5 ft 2 in Weight 195 lb BMI 35.7 BP 110/70 Blood Pressure Location Lt brachial Position Sitting Pulse 90 Pulse Source Pulse Oximeter Temp 96.9 F Temp Source Temporal Artery Scan Pulse Oximetry (%) 97 Oxygen Delivery Method Room Air Intake Visit Reasons: annual exam Intake Note: Patient is here today for a physical. Outside Physical Damage Appraiser Required: No Accompanied by: Nephew or Niece Allergies Iodinated Contrast Media [IV CONTRAST] Allergy (Severe, Verified 04/14/24 13:19) ANAPHYLAXIS iodine Allergy (Unknown, Verified 04/14/24 13:19) Hives CT Scan Dye Allergy (Unknown, Uncoded 04/14/24 13:19) Hives dust mite Allergy (Unknown, Uncoded 04/14/24 13:19) Itching Medication List - Last Reconciled 04/14/24 by Humaira Maria MD albuterol sulfate 90 mcg/actuation (ProAir HFA) 2 puffs inhalation Q6H PRN sumatriptan succinate (Imitrex) 50 mg orally QD PRN; Synthroid (levothyroxine) 100 mcg PO DAILY 90 days NS Tobacco use date assessed: 04/14/24 Dental Screening Dental Screen Date: 04/14/24 Did you have a dental visit in the last 12 months?: Yes Did you have a dental problem in the last 6 months where you did not have access to dental care?: No Was dental information given to patient?: Patient has dentist HPI annual exam HPI Details dizziness, hearing problem, The patient is a 39-year-old female presenting for a wellness visit and management of chronic conditions. The patient's medical history includes asthma, for which she uses an inhaler sparingly, and hypothyroidism, for which she regularly takes Synthroid. She also has a history of gastroesophageal reflux disease, managed with lifestyle mo difications, and nonalcoholic fatty liver disease. The patient has hypercholesterolemia, with previous lab results showing total cholesterol of 217 and LDL of 145 mg/dL. Her blood sugar was also noted to be slightly elevated at 100 mg/dL. Additionally, the patient experiences migraines that require occasional use of sumatriptan. She reports chest discomfort, described as a cramping sensation when lying down, that resolves with position changes. The patient's familial history is notable for her aunt having thyroid cancer and her sister having breast cancer. She has not undergone any surgeries related to these issues. - Blood work reviewed: normal blood coun t, normal electrolytes, normal renal function, with noted hyperglycemia (blood sugar of 100 mg/dL) and hypercholesterolemia (total cholesterol 217 mg/dL, LDL 145 mg/dL). - Breast cancer screening due: discussed a need for a new mammogram as the last one was in February 2016. - Recommended dietary adjustments and re gular exercise for cholesterol and blood sugar management, including a low-fat diet with minimized animal protein intake. - Discussed the significance of controll ing Hyperglycemia and maintaining cholesterol levels with a target LDL goal of less than 130 mg/dL and triglycerides less than 150 mg/dL. - Vitamin D intake was mentioned; alison montelongo, its adherence was irregular. - Consumes alcohol sparingly, once every couple of months, due to migraines. - Does not smoke and uses recreational e dibles occasionally. - Reports limited physical activity exce pt home responsibilities. - The patient describes herself as the h ealthiest eater in her household, emphasizes vegetable intake. - Utilizes blue-light glasses to counter act screen exposure effects due to her job involving prolonged computer use. - Cardiovascular: Reports chest pain at rest, described as a cramping sensation that impedes movement, improves with change in position. - Gastrointestinal: Denies blood in stoo l, reports constipation issues managed with prunes and attempted use of Senna with no significant relief. - Neurological: Reports migraines, uses sumatriptan more frequently. - Hearing: Reports hearing loss, advised on the need for hearing aids or surgery. - Respiratory: Denies shortness of breat h or chest pain with activity. - Labs: Normal blood count, normal elect rolytes, normal renal function, hyperglycemia (blood sugar 100 mg/dL), hypercholesterolemia (total cholesterol 217 mg/dL, LDL 145 mg/dL). Vitamin B12 was low (271). - Tests: Mammogram pending as the last w as performed in February 2016. [facility] Medical History Obesity (BMI 30.0-34.9) LFT elevation Chest pain Thoracic back pain History of Overweight (BMI 25.0-29.9) Anxiety and depression Migraine GERD (gastroesophageal reflux disease) Hypothyroid Surgical History H/O eye surgery History of stapedectomy Family History Maternal Aunt Heart attack Thyroid cancer Sister Age: 44 Breast cancer, Onset Age: 36 Father Alcohol abuse Mental health disorder Substance use disorder Social History (Updated 04/14/24 @ 13:33 by Humaira Maria MD) Housing: House Alcohol intake: current Alcohol intake frequency: holidays/special occasions only Comment: once Q 2 months1-2 beers Patient Tobacco Use Status: Never used Tobacco Years Smoked: edibles e-Cigarette/Vaping Use: Never Used Second Hand Smoke Exposure: No service: No Current occupational status: employed Current occupational exposures/hazards: No Cognitive needs: No Hearing needs: No Vision needs: No Questionnaire PHQ-9 Over the last 2 weeks, how often have you been bothered by any of the following problems? 1. Little interest or pleasure in doing things: not at all 2. Feeling down, depressed, or hopeless: not at all 3. Trouble falling or staying asleep, or sleeping too much: not at all 4. Feeling tired or having little energy: not at all 5. Poor appetite or overeating: not at all 6. Feeling bad about yourself - or that you are a failure or have let yourself or your family down: not at all 7. Trouble concentrating on things, such as reading the newspaper or watching television: not at all 8. Moving or speaking so slowly that other people could have noticed. Or the opposite - being so fidgety or restless that you have been moving around a lot more than usual: not at all 9. Thoughts that you would be better off or of hurting yourself in some way: not at all Total score: 0 Depression Screening Interpretation: Negative Depression Screening Done: Yes 79505 - PHQ-9 Billing: Yes Source: Developed by Drs. Jluis Mcmillan, Rose Mary Vargas, Killian Delong and colleagues, with an educational debo from [employer]. Thrive Questionnaire Date Thrive assessed: 04/14/24 I am a: Patient What is your living situation today?: I have a steady place to live Within the past 12 months, did the food you bought not last and you didn't have the money to get more?: Often true Within the past 12 months, did you worry whether your food would run out before you got money to buy more?: I choose not to answer this question Do you have trouble paying for medicines?: I choose not to answer this question Do you have trouble getting transportation to medical appointments?: I choose not to answer this question Do you have trouble paying your heating and electricity bill?: I choose not to answer this question Do you have trouble taking care of your child, family member or friend?: I choose not to answer this question Do you have trouble with day-to-day activities such as bathing, preparing meals, shopping, managing finances, etc.?: I choose not to answer this question Are you currently unemployed and looking for a job?: I choose not to answer this question Are you interested in more education?: I choose not to answer this question Please select the resources that you would like help with: None Currently or been in a relationship where the following occur: No concerns reported THRIVE Score: 1 AUDIT C Alcohol Use Questionnaire (AUDIT-C) 1. How often do you have a drink containing alcohol?: Monthly or less 2. How many drinks containing alcohol do you have on a typical day when you are drinking?: 1 or 2 3. How often do you have six or more drinks on one occasion?: Less than monthly Total Score: 2 PATEL-7 AMB Questionnaire PATEL-7 Date PATEL - 7 assessed: 04/14/24 Feeling nervous, anxious, or on edge: 0 = Not at all Not being able to stop or control worryin = Not at all Worrying too much about different things: 0 = Not at all Trouble relaxin = Not at all Being so restless that it is hard to sit still: 0 = Not at all Becoming easily annoyed or irritable: 0 = Not at all Feeling afraid as if something awful might happen: 0 = Not at all Total PATEL-7 score (0-4 normal; 5-9 mild; 10-14 moderate; 15-21 severe): 0 Source: Developed by Drs. Jluis Mcmillan, Rose Mary Vargas, Killian Delong and colleagues, with an educational debo from [employer]. PATEL-7 Assessment Billing PATEL-7 Assessment Tool: PATEL-7 Assessment 63542 Review of Systems Const Denies poor appetite and Denies weakness Eyes Denies no additional complaints ENT Reports Normal hearing present, Denies dizziness, Denies nasal congestion, Denies tinnitus and Denies sore throat Card Denies chest pain, Denies syncope, Denies rapid heart rate and Denies dyspnea Resp Denies cough and Denies dyspnea GI Denies change in stool character, Reports constipation, Denies diarrhea, Denies nausea and Denies vomiting Denies urinary frequency, Denies difficulty voiding and Denies dysuria Neuro Reports Normal hearing present, Denies confusion, Denies dizziness, Denies syncope and Denies weakness Psych Denies confusion Physical exam (Primary Care) Vital Signs: Last Vital Signs Temp 96.9 F 04/14/24 13:14 Pulse 90 04/14/24 13:14 BP 110/70 04/14/24 13:14 Pulse Ox 97 04/14/24 13:14 Oxygen Delivery Method Room Air 04/14/24 13:14 BMI result Body Mass Index 35.7 Tobacco/Smoking Status: Tobacco use Status Tobacco use date assessed 04/14/24 04/14/24 13:24 Patient Tobacco Use Status Never used Tobacco 04/14/24 13:16 e-Cigarette/Vaping Use Never Used 04/14/24 13:16 PHQ-9: PHQ-9 Score PHQ-9: Total score 0 04/14/24 13:24 Depression Screening Interpretation: Negative Thrive Assessment: Date of Thrive Assessment Date Thrive assessed 04/14/24 04/14/24 13:24 Currently or been in a relationship where the following occur: No concerns reported Const General: No confusion Orientation/consciousness: No confusion HENMT Head: Yes normocephalic Ears: external ears normal and TM's normal bilaterally Face and sinus: Yes normal facial exam Mouth: moist mucous membranes Throat: Yes tonsils normal Eyes Conjunctivae: conjunctivae normal Pupils: Equal, round and reactive pupils present and Pupil accommodation reflex normal Direct Ophthalmoscopy: normal light reflex Neck Neck: No lymphadenopathy Thyroid: Thyroid normal Chest Chest palpation & inspection: normal inspection of the chest Resp Effort & Inspection: normal respiratory effort and no audible wheezes Auscultation: clear to auscultation bilaterally, no crackles, no wheezes and lung sounds not diminished Cardio Rate: regular rate Rhythm: regular rhythm Peripheral pulses: radial pulses present and dorsalis pedis present GI Palpation (GI): no masses Auscultation: normal bowel sounds and normoactive bowel sounds Rectal Exam - Female: deferred Skin General skin exam: no rashes or lesions noted Rashes: no rashes Neuro General: No confusion Cranial nerves: Yes Equal, round and reactive pupils present and Yes Normal hearing present Cognition (Neuro): normal cognition Gait exam (Neuro): Normal gait present Motor exam (neuro): 5/5 motor strength present throughout Deep tendon reflexes (DTR's): Right brachioradialis reflex intensity grade: 2+, Left brachioradialis reflex intensity grade: 2+, Right patellar reflex intensity grade: 2+ and Left patellar reflex intensity grade: 2+ Extrem General: No edema Coding Level of Care Code Est Pt Prev Care 40-64y(22788) Diagnoses Annual physical exam Z00.00 Acquired hypothyroidism E03.9 Hypothyroidism type: acquired Mild intermittent asthma without complication J45.20 Asthma severity: mild Asthma persistence: intermittent Asthma complication type: uncomplicated Gastroesophageal reflux disease without esophagitis K21.9 Esophagitis presence: without esophagitis Fatty liver K76.0 Hypercholesterolemia E78.00 Impaired fasting blood sugar R73.01 Obesity (BMI 30-39.9) E66.9 Breast cancer screening by mammogram Z12.31 Additional Codes PATEL-7 Assessment Billing - PATEL-7 Assessment Tool: PATEL-7 Assessment 61531 ([id number]) PHQ-9 - 47991 - PHQ-9 Billing: Yes ([id number]) Assessment & Plan Assessment & Plan (1) Annual physical exam: Code(s): Z00.00 - Encounter for general adult medical examination without abnormal findings Category: Medical Plan: Patient is advised to eat healthy, keep well hydrated, keep active and have adequate sleep. (2) Hypothyroid: Code(s): E03.9 - Hypothyroidism, unspecified Category: Medical Qualifiers: Hypothyroidism type: acquired Qualified Code(s): E03.9 - Hypothyroidism, unspecified Plan: Blood work requested continue with thyroid medication (3) Asthma: Code(s): J45.909 - Unspecified asthma, uncomplicated Category: Medical Qualifiers: Asthma severity: mild Asthma persistence: intermittent Asthma complication type: uncomplicated Qualified Code(s): J45.20 - Mild intermittent asthma, uncomplicated Plan: Continue with the inhaler as needed (4) GERD (gastroesophageal reflux disease): Code(s): K21.9 - Gastro-esophageal reflux disease without esophagitis Category: Medical Qualifiers: Esophagitis presence: without esophagitis Qualified Code(s): K21.9 - Gastro-esophageal reflux disease without esophagitis Plan: Avoid the foods that causes that usually spicy foods, tomato products, juices, coffee, soda and foods that your sensitive to. After eating do not lie down, allow 3-4 hours before in lie down. And keep the head of bed above 30 degrees to avoid the acid from going up. (5) Fatty liver: Code(s): K76.0 - Fatty (change of) liver, not elsewhere classified Category: Medical Plan: Low-fat diet and exercise (6) Hypercholesterolemia: Code(s): E78.00 - Pure hypercholesterolemia, unspecified Category: Medical Plan: Avoid fried foods, chicken skin, eggs, butter margarine, pastries and meat. Be it pork or beef they have a lot of cholesterol LDL goal of less than 130 and triglyceride of less than 150. (7) Impaired fasting blood sugar: Code(s): R73.01 - Impaired fasting glucose Category: Medical Plan: Decrease the amount of carbohydrate intake, pasta, bread, rice and potatoes are all sugar and that is aside from all the sweet stuff, remember that fruits are good but they are Sweet also. (8) Obesity (BMI 30-39.9): Code(s): E66.9 - Obesity, unspecified Category: Medical Plan: Diet and exercise (9) Breast cancer screening by mammogram: Code(s): Z12.31 - Encounter for screening mammogram for malignant neoplasm of breast Category: Medical Plan - Mammogram requested for breast cancer screening. - Blood work requisitioned for evaluation of cholesterol and blood sugar levels to monitor and manage hyperlipidemia and hyperglycemia. - Continue Synthroid for hypothyroidism and inhaler as needed for asthma. - Advise low-fat diet and regular exercise to achieve target LDL and triglyceride levels. - Reinforce the management plan for Gastroesophageal Reflux Disease and migraines. - Discussed potential benefits of vitamin D supplementation. I discussed the importance of addressing hyperglycemia and hypercholesterolemia with dietary modifications and exercise. I advised on the significance of a low- fat diet, reduction of animal proteins, and regular physical activity to manage lipid levels. The necessity of a new mammogram for updated breast cancer screening was emphasized, given the family history. I reviewed the patient's medication use for asthma and migraines and recommended maintaining current man agement. We collaborated on the plan to alleviate constipation using dietary interventions, and I underscored the importance of continuing routine health maintenance measures, including vitamin D supplementation, given low levels. - Schedule and complete mammogram. - Continue Synthroid and use inhaler as needed. - Follow a low-fat diet with minimized animal protein intake. - Engage in regular physical activity. - Avoid alcohol and smoking. - Monitor migraine frequency and use sumatriptan as prescribed. - Use hearing aids as advised. - Take vitamin D supplements as discussed. - Address constipation with prunes or alternative dietary measures. Orders: Orders Complete Blood Count Auto Diff Today E78.00 - Pure hypercholesterolemia, unspecified Comprehensive Met. Panel Today E78.00 - Pure hypercholesterolemia, unspecified Thyroid Stimulating Hormone Today E78.00 - Pure hypercholesterolemia, unspecified Free T4 (Free Thyroxine) Today E78.00 - Pure hypercholesterolemia, unspecified Hemoglobin A1c Today E78.00 - Pure hypercholesterolemia, unspecified Vitamin B12 and Folate Today E78.00 - Pure hypercholesterolemia, unspecified Vitamin D 25-OH Total Today E78.00 - Pure hypercholesterolemia, unspecified Lipid Panel Today E78.00 - Pure hypercholesterolemia, unspecified Medications: Refilled clotrimazole 1% 1 appl topical BID 4 weeks 45 grams 0RF B35.4 - Tinea corporis sumatriptan succinate (Imitrex) 50 mg orally QD PRN; 14 tabs 3RF migraine headache G43.909 - Migraine, unspecified, not intractable, without status migrainosus
--- OUTSIDE RECORDS SUMMARY | 2024-04-14 14:03 | XMS_ITS | Encounter Summary ---
Author Organization [facility] Address [address] [place] [address] Care Team Providers Care Wire Drawing Machine Tender Name Role Phone Humaira Maria MD Primary Care Provider [phone] Reason for Visit * Reason Onset Date Comments Med Refill 04/01/2024 Encounter Details Date Type Department Care Team (Late st Contact Info) Description 04/01/2024 Telephone Obstetrics & Gynecology - [facility] [address] [place] [address] Laura Vicente CNM [address] [place] [address] Med Refill Social History Tobacco Use Types Packs/Day Years Used Date Smoking Tobacco: Never Smokeless Tobacco: Never Alcohol Use Standard Drinks/Week Comments Not Currently 0 (1 standard drink = 0.6 oz pur e alcohol) Comments No Sex and Gender Information Value Date Recorded Sex Assigned at Not on file Legal Sex Female 12:40 PM EST Gender Identity Not on file Sexual Orientation Not on file documented as of this encounter Progress Notes * Zahra Dahl RN - 04/01/2024 12:08 PM EST Spoke with pt. She is currently using daughters steroid cream that was prescribed for eczema. States sthis started after her menses, was using different pads and started getting really itchy, red, and sore/painful. No blisters. Did also recently shave to make it easier to apply cream. Hair is growing in and now irritating skin more. Has not tried any antihistamines (benadryl makes her sleepy). There was a cancellation at 1pm todaywith Rosalie Rutherford CNM which pt accepted. Address provided. Reviewed vulvar care guidelines including baking soda sitz baths. * Zahra Dahl RN - 04/01/2024 10:05 AM EST Reviewed both current Epic and Legacy, we have never prescribed cortisone or any other steroid cream for pt (we have only treated for yeast and BV with metrogel, monistat and diflucan in past). What exactly is she using? This isn't something that we would normally prescribe without seeing first. If she is using OTC cortisone, she can purchase this over the counter without prescription. Msg left for call back. * Namrata Bowie - 04/01/2024 9:56 AM EST Pt calling, states she has an vaginal rash and found an cortisone cream and has been applying and it seems to be soothing some, but asking if new rx can be sent (pt did schedule appt for 04/05/24, but states is uncomfortable, can't wait that long). Pls advise documented in this encounter Plan of Treatment Not on file documented as of this encounter Visit Diagnoses Not on filedocumented in this encounter Care Teams Wire Drawing Machine Tender Relationship Specialty Start Date End Date Humaira Maria MD [address] [place] [address] Dr [address] [facility] [place] [address] PCP - General Internal Medicine 09/02/18 documented as of this encounter
--- OUTSIDE RECORDS SUMMARY | 2024-04-14 14:03 | XMS_ITS | Clinical Summary ---
Author Organization [facility] Address [address] [place] [address] Phone Care Team Providers Care Electro Plater Name Role Phone Humaira Maria MD Primary Care Provider [phone] Allergies Active Allergy Reactions Criticality Noted Date Comments Iodine Swelling High 08/18/2017 Other Reaction(s): Hives/Urticaria Medications cholecalciferol (VITAMIN D-3) 50 mcg (2,000 unit) capsule Take 1 tablet.old by mouth daily. 4 Active levothyroxine (SYNTHROID, LEVOTHROID) 100 mcg tablet Take 100 mcg by mouth daily. Active metroNIDAZOLE (METROGEL) 0.75 % (37.5mg/5 gram) vaginal gel Insert vaginally at bedtime x 5 nights and then once a week for 10 weeks 4 Active SUMAtriptan (IMITREX) 50 mg tablet Take 1 tablet (50 mg total) by mouth 1 (one) time if needed. 4 Active valACYclovir (VALTREX) 500 mg tablet Take 1 tablet (500 mg total) by mouth 2 (two) times a day. for 3 days 4 Active Active Problems Problem Noted Date Diagnosed Date Cervical polyp 02/21/2022 Overview (01/15/2024): 04/06/23 Cervical polypectomy ASCUS with positive high risk HPV cervical 04/27 Overview (01/15/2024): 08/2015- ascus + HPV 09/2015- Colpo Bx negative Plan repeat pap smear 1 yr 07/2017- pap smear ASCS negative HPV 04/2019- repeat papsmear- neg PAP AND NEG HPV PLAN REPEAT 5 YRS Encounters Date Type Department Care Team Description 04/01/2024 1:00 PM EST Office Visit Obstetrics and Gynecology - [facility] [address] [place] [address] Rosalie Rutherford CNM Irritant contact dermatitis due to other chemical products (Primary Dx) 04/01/2024 Telephone Obstetrics & Gynecology - [address] [address] Laura Vicente CNM Med Refill from Last 3 Months Surgical History Surgery Date Site/Laterality Comments OTHER SURGICAL HISTORY Left PROCEDURE: ---- OTHER ----; COMMENT: ear surgery OTHER SURGICAL HISTORY Bilateral PROCEDURE: ---- OTHER ----; COMMENT: Lasik eye surgery OTHER SURGICAL HISTORY PROCEDURE: DENIES PREVIOUS SURGERY Medical History Medical History Date Comments Anxiety state DX:Anxiety state Asthma DX:Asthma Chronic gastric ulcer with obstruction DX:Chronic gastric ulcer wit h obstruction Venereal disease DX:Venereal dis ease; COMMENT: + chlamydia / + HSV Abnormal cytological finding in specimen from cervix 09/14/2015 DX:Abnormal cytological find ing in specimen from cervix; COMMENT: ASCUS + HPV Family History Medical History Relation Name Comments Arthritis Maternal Grandmother Diabetes Maternal Grandmother Hypertension Maternal Grandmother Arthritis Mother Breast cancer Sister Colon cancer Neg Hx Ovarian cancer Neg Hx Prostate cancer Neg Hx Relation Name Status Comments Maternal Grandmother Mother Sister Social History Tobacco Use Types Packs/Day Years Used Date Smoking Tobacco: Never Smokeless Tobacco: Never Alcohol Use Standard Drinks/Week Comments Not Currently 0 (1 standard drink = 0.6 oz pur e alcohol) Comments No Sex and Gender Information Value Date Recorded Sex Assigned at Not on file Legal Sex Female 12:40 PM EST Gender Identity Not on file Sexual Orientation Not on file Obstetrics History Para Term AB IAB SAB Ectopic Multiple Livin g Live Births 4 2 2 2 2 2 2 Date Outcome GA Total Labor Labor/2nd/3rd Weight Sex Type Anes PTL Nani A1 A5 Name Clin IAB IAB 003 Term 38w 0d 3226 g (113.8 oz) F Vag-S pont Epidur al N Livin g Complications:None Delivery Location:[facility] 006 Term 39w 0d 3402 g (120 oz) F Vag-S pont None N Livin g Complications:None Delivery Location:[facility] Last Filed Vital Signs Vital Sign Reading Time Taken Comments Blood Pressure 99/69 04/01/2024 1:19 PM EST Pulse 86 04/01/2024 1:19 PM EST Temperature - - Respiratory Rate 18 04/01/2024 1:19 PM EST Oxygen Saturation - - Inhaled Oxygen Concentration - - Weight 89.6 kg (197 lb 9.6 oz) 04/01/2024 1:19 P M EST Height 157.5 cm (5' 2 ) 04/01/2024 1:19 PM EST Body Mass Index 36.14 04/01/2024 1:19 PM EST Plan of Treatment Health Maintenance Due Date Last Done Comments Breast Cancer Screening 1984 Depression Screening 01/21/2022 Social Influencers of Health Screening 01/21/2022 COVID-19 Vaccine ( season) 2023 Influenza Vaccine (#1) 2023 Cholesterol Screening (Lipid Panel) 04/01/2026 04/01/2021 Cervical Cancer Screening: Pap Smear 04/06/2026 04/06/2023, 04/27/2019, 08/18/2017, Additional history exists DTaP,Tdap,and Td Vaccines (6 - Td or Tdap) 06/25/2031 06/24/2021, 06/24/1999, 12/23/1997, Additional history exists MMR Vaccines Completed 09/22/1990 HIB Vaccines Aged Out 08/22/1996 No longer eligi ble based on patient's age to complete this topic IPV Vaccines Completed 12/23/1997, 07/26, 05/23/1994, Additional history exists Hepatitis B Vaccines Completed 06/06/1998, 01/04/1997, 01/25/1996 HIV Screening Completed 04/01/2021 Hepatitis C Screening Completed 04/01/2021 HPV Vaccines Aged Out No longer eligi ble based on patient's age to complete this topic Hepatitis A Vaccines Aged Out No long er eligible based on patient's age to complete this topic Meningococcal ACWY Vaccine Aged Out N o longer eligible based on patient's age to complete this topic Meningococcal B Vacine Aged Out No lo nger eligible based on patient's age to complete this topic Pneumococcal Vaccine: Pediatrics (0 to 5 Years) and At-Risk Patients (6 to 64 Years) Aged Out No longer eligible based on patient's age to complete this topic RSV Immunization Patients Under 20 months Aged Out No longer eligible based on patient's age to complete this topic Varicella Vaccines Aged Out No longer eligible based on patient's age to complete this topic Procedures Procedure Name Priority Date/Time Associated Diagnosis Comments PAP SMEAR Routine 04/06/2023 HEPATITIS C SCREENING Routine 04/01/2021 HIV SCREENING Routine 04/01/2021 LIPID PANEL Routine 04/01/2021 from Last 3 Months or Most Recently Relevant to Health Maintenance Results * Pap Smear (04/06/2023) Pathologist [facility] Pap smear negative, abstracted [facility] Provider HEALTH MAINTENANCE Final Result * HIV Screening (04/01/2021) [facility] HIV Screening abstracted [facility] Provider HEALTH MAINTENANCE Final Result * Hepatitis C Screening (04/01/2021) Pathologist [facility] Hepatitis C Screening abstracted [facility] Provider HEALTH MAINTENANCE Final Result * (ABNORMAL) Lipid panel (04/01/2021) [facility] LDL/HDL Ratio 5(A) 0 - 4 Triglycerides 132 0 - 150 mg/dL Cholesterol 204(A) 0 - 200 mg/dL HDL 45 >=40 mg/dL LDL Cholesterol 133(A) 0 - 100 mg/dL Blood Venous blood specimen / Unknown [facility] Provider LAB BLOOD ORDERABLES Tona l Result from Last 3 Months or Most Recently Relevant to Health Maintenance Insurance [facility] Care Teams Electro Plater Relationship Specialty Start Date End Date Humaira Maria MD [address] [place] [address] [address] [facility] [place] [address] PCP - General Internal Medicine 09/02/18
--- OUTSIDE RECORDS SUMMARY | 2024-04-14 14:03 | XMS_ITS | Clinical Summary ---
Author Organization [facility] Address [address] [place] [phone] Phone Care Team Providers Care Landfill Gas Collection Operator Name Role Phone Unavailable Primary Care Provider Unavailabl e Immunizations Immunization Administration Dates Next Due DTaP 5 12/23/1997, 5,05/23/1994,1994,12/23/1990 Hep B, ped/adol 06/06/1998,01/04/1997,01/25/1996 Hib (HbOC) 08/22/1996 IPV 12/23/1997, 5,05/23/1994,1994,12/23/1990 MMR 09/22/1990 Measles 02/23/1996 Mumps 03/25/1996 Rubella 06/22/1996 Td (adult) (MBL), 2 Lf tetan us toxoid, PF, adsorbed 06/24/1999 Social History Tobacco Use Types Packs/Day Years Used Date Smoking Tobacco: Never Assessed Comments Unknown Sex and Gender Information Value Date Recorded Sex Assigned at Not on file Legal Sex Female 3:53 PM EDT Gender Identity Not on file Sexual Orientation Not on file Plan of Treatment Health Maintenance Due Date Last Done Comments Varicella Vaccines (1 of 2 - 13+ 2-dose series) 01/08/1997 DTaP,Tdap,and Td Vaccines (5 - Tdap) 06/23/2009 06/24/1999, 12/23/1997, 08/22/1994, Additional history exists Influenza Vaccines (#1) 2023 COVID-19 Vaccine ( season) 2023 MMR Vaccines Completed 09/22/1990 HIB Vaccines Aged Out 08/22/1996 No longer eligi ble based on patient's age to complete this topic IPV Vaccines Completed 12/23/1997, 07/26, 05/23/1994, Additional history exists Hepatitis B Vaccines Completed 06/06/1998, 01/04/1997, 01/25/1996 HPV Vaccines Aged Out No longer eligi ble based on patient's age to complete this topic Hepatitis A Vaccines Aged Out No long er eligible based on patient's age to complete this topic Men B Vaccine Aged Out No longer elig ible based on patient's age to complete this topic Meningococcal Vaccine Aged Out No joseluis minerva eligible based on patient's age to complete this topic Pneumococcal Vaccine Aged Out No long er eligible based on patient's age to complete this topic
--- OUTSIDE RECORDS SUMMARY | 2024-04-14 14:03 | XMS_ITS | Encounter Summary ---
Author Organization [facility] Address [address] [place] [address] Care Team Providers Care Legal Records Manager Name Role Phone Humaira Maria MD Primary Care Provider [phone] Reason for Visit * Reason Comments Rash Vaginal, painful Encounter Details Date Type Department Care Team ([facility] Contact Info) Description 04/01/2024 1:00 PM EST Office Visit Obstetrics and Gynecology - [address] [phone] Rosalie Rutherford CNM [address] [place] [id number] Irritant contact dermatitis due to other chemical products (Primary Dx) Social History Tobacco Use Types Packs/Day Years [...] on file documented as of this encounter Last Filed Vital Signs Vital Sign Reading [...] Mass Index 36.14 04/01/2024 1:19 PM EST documented in this encounter Progress Notes * Rosalie Rutherford ALEXSANDRA - 04/01/2024 1:00 PM EST Images from the original note were not included. CHIEF COMPLAINT: Rash (Vaginal, painful) IDENTIFIER:Ines Novoa is a 39 y.o. female HPI: Pt presents today for evaluation of vulvar rash . 2 weeks ago pt developed a rash on the skin around her vaginal opening, after using a different brand of pads. It was getting worse, so she tried clotrimazole, which burned her. Next she tried prescription hydrocortizone, which improved it a little,then she shaved to make it easier to apply the cream. She has a history of HSV, but this does not feel like a normal breakout for her. ROS: GENERAL: normal BREAST: negative for breast lumps : negative SOLIDWORKS DESIGNER: rash PAST MEDICAL HISTORY: OB History Para Term AB Living 4 2 2 2 2 SAB IAB Ectopic Multiple Live Births 2 2 # Outcome Date GA Lbr Minh/2nd Weight Sex Type Anes PTL Lv 4 Term 04/26/05 39w0d 3402 g (120 oz) F Vag-Spont None N CHELA 3 Term /08/25 38w0d 3226 g (113.8 oz) F Vag-Spont EPI N CHELA 2 IAB 1 IAB Patient Active Problem List Diagnosis ASCUS with positive high risk HPV cervical Cervical polyp SOCIAL HISTORY: Social History Tobacco Use Smoking status: Never Smokeless tobacco: Never Substance Use Topics Alcohol use: Not Currently Drug use: Yes Types: Marijuana/Cannabis Comment: edibles FAMILY HISTORY: Family History Problem Relation Name Age of Onset Diabetes Maternal Grandmother Hypertension Maternal Grandmother Arthritis Maternal Grandmother Arthritis Mother Breast cancer Sister Colon cancer Neg Hx Ovarian cancer Neg Hx Prostate cancer Neg Hx I have reviewed the following sections of the chart: active problem list MEDICATIONS: Your medication list Accurate as of April 01, 2024 2:48 PM. If you have any questions, ask your nurse or doctor. CONTINUE taking these medications Instructions Last Dose Given Next Dose Due cholecalciferol 50 mcg (2,000 unit) capsule Commonly known as: VITAMIN D-3 Take 1 tablet.old by mouth daily. levothyroxine 100 mcg tablet Commonly known as: SYNTHROID, LEVOTHROID Take 100 mcg by mouth daily. metroNIDAZOLE 0.75 % (37.5mg/5 gram) vaginal gel Commonly known as: METROGEL Insert vaginally at bedtime x 5 nights and then once a week for 10 weeks SUMAtriptan 50 mg tablet Commonly known as: IMITREX Take 1 tablet (50 mg total) by mouth 1 (one) time if needed. valACYclovir 500 mg tablet Commonly known as: VALTREX Take 1 tablet (500 mg total) by mouth 2 (two) times a day. for 3 days Contraception: Condoms ALLERGIES: Allergies Allergen Reactions Iodine Swelling Other Reaction(s): Hives/Urticaria PHYSICAL EXAM: Visit Vitals BP 99/69 (BP Location: Right arm, Patient Position: Sitting, BP Cuff Size: Adult) Pulse 86 Resp 18 Ht 1.575 m (62 ) Wt 89.6 kg (197 lb 9.6 oz) LMP 03/16/2024 (Approximate) BMI 36.14 kg/m?? OB Status Having periods Smoking Status Never BSA 1.9 m?? APPEARANCE:Healthy, alert, active, cooperative, and in no distress EXTERNAL GENITALIA: pt has pink, dry, rashy skin surrounding the vaginal opening, appears to be dermititis. URETHRA: midline with no erythema, mass or drainage PSYCH: affect appropriate LABS: Last pap: 05/12 neg; Hx abnormal 2015 ASSESSMENT: 1. Irritant contact dermatitis due to other chemical products PLAN: Pt to use aquaphor on rashy area to heal the dermititis. No orders of the defined types were placed in this encounter. Rosalie Rutherford CNM documented in this encounter Plan of Treatment Not on file documented as of this encounter Visit Diagnoses Diagnosis Irritant contact dermatitis due to other chemical products- Primary documented in this encounter Historical Medications * This list may reflect changes made after this encounter. valACYclovir (VALTREX) 500 mg tablet Take 1 tablet (500 mg total) by mouth 2 (two) times a day. for 3 days 11/19/2023 SUMAtriptan (IMITREX) 50 mg tablet Take 1 tablet (50 mg total) by mouth 1 (one) time if needed. 02/07/2024 added in this encounter Care Teams Legal Records Manager Relationship Specialty Start Date End Date Humaira Maria MD [address] [place] [address] [address] [facility] [place] [address] PCP - General Internal Medicine 09/02/18 documented as of this encounter
== END 2024-04-14 13:48 | disposition home or self-care (01) ==
PROVIDERS: PCP Internal Medicine; Visit Provider Internal Medicine
DX: Z00.00 Encounter for general adult medical examination without abnormal findings (principal); E66.9 Obesity, unspecified; Z68.35 Body mass index [BMI] 35.0-35.9, adult; E03.9 Hypothyroidism, unspecified; J45.20 Mild intermittent asthma, uncomplicated; K21.9 Gastro-esophageal reflux disease without esophagitis; K76.0 Fatty (change of) liver, not elsewhere classified; E78.00 Pure hypercholesterolemia, unspecified; R73.01 Impaired fasting glucose; Z12.31 Encounter for screening mammogram for malignant neoplasm of breast

== ENCOUNTER → 2024-04-14 13:07 | Outpatient (BNVA) | payer OTHER, SELFPAY | PROVIDERS: PCP Internal Medicine; Visit Provider Internal Medicine | DX: Z00.00 Encounter for general adult medical examination without abnormal findings (principal); E03.9 Hypothyroidism, unspecified; J45.20 Mild intermittent asthma, uncomplicated; K21.9 Gastro-esophageal reflux disease without esophagitis; K76.0 Fatty (change of) liver, not elsewhere classified; E78.00 Pure hypercholesterolemia, unspecified; R73.01 Impaired fasting glucose; E66.9 Obesity, unspecified | CPT/HCPCS: 96127; 99396 ==

== ENCOUNTER → 2024-06-03 16:31 | Outpatient (BNVA) | payer SELFPAY | PROVIDERS: PCP Internal Medicine; Visit Provider Internal Medicine | DX: Z13.89 Encounter for screening for other disorder (principal) | CPT/HCPCS: 96127 ==

== ENCOUNTER 2024-11-24 15:47 | Outpatient (REF) | payer OTHER, SELFPAY ==
[2024-11-24 17:05] LABS: MANUAL DIFF FLAG NO
[2024-11-24 17:30] LABS: Hematocrit 43.6 % (37.0-47.0); Hemoglobin 14.6 g/dl (12.0-16.0); Imm Gran Abs Auto 0.03 X10*3/uL (0.00-0.03); Imm Gran Pct Auto 0.4 % (0.0-0.4); Lymphocytes Absolute Auto 2.6 X10*3/uL (1.2-4.9); Mean Corpuscular HGB Conc 33.5 g/dl (31.0-35.0); Mean Corpuscular Hemoglobin 28.6 pg (27.0-33.0); Mean Corpuscular Volume 85.5 fL (80.0-98.0); NRBC Abs Auto 0.000 X10*3/uL (0.0-0.012); NRBC Pct Auto 0.0 /100WBC (0.0-0.2); Platelet Count 289 X10*3/uL (160-400); Red Blood Count 5.10 X10*6/uL (4.20-5.50); White Blood Count 6.9 X10*3/uL (4.8-10.8)
[2024-11-24 17:51] LABS: Appearance Urine Cloudy; Glucose Urine UA Negative (Negative); PH 5.5 (5.0-9.0); Specific Gravity - Urine 1.020 (1.005-1.025); UMIC TRIGGER UACC YES
[2024-11-24 18:04] LABS: UACC Culture Trigger YES
[2024-11-24 18:14] LABS: Alanine Aminotransferase 39 U/L (0-31); Albumin Level 4.4 g/dL (3.5-5.0); Alkaline Phosphatase 84 U/L (39-117); Anion Gap 11 (12-20); Aspartate Amino Transferase 28 U/L (5-31); Blood Urea Nitrogen 8 mg/dL (9-16); Calcium 9.0 mg/dL (8.4-10.2); Carbon Dioxide 29 mmol/L (22-29); Chloride 105 mmol/L (96-108); Cholesterol 258 mg/dL (<200); Estimated Glomerular Filt Rate > 60; HDL Cholesterol 36 mg/dL (>40); Potassium 3.6 mmol/L (3.3-5.1); Sodium 141 mmol/L (135-145); Total Protein 7.5 g/dL (6.5-8.0); Triglycerides 182 mg/dL (<150)
[2024-11-24 18:23] LABS: Folate 9.0 ng/mL (> or = 4.0); Vitamin B12 323 pg/mL (200-900)
[2024-11-24 18:30] LABS: Free T4 (Free Thyroxine) 1.06 ng/dL (0.71-1.85)
== END 2024-11-24 15:48 | disposition home or self-care (01) ==
LOC: HO.LAB 15:47
PROVIDERS: PCP Internal Medicine; Visit Provider Internal Medicine
DX: Z12.31 Encounter for screening mammogram for malignant neoplasm of breast (principal); R73.01 Impaired fasting glucose; E78.00 Pure hypercholesterolemia, unspecified; R30.0 Dysuria; R51.9 Headache, unspecified; E03.9 Hypothyroidism, unspecified; E66.9 Obesity, unspecified; K21.9 Gastro-esophageal reflux disease without esophagitis; K76.0 Fatty (change of) liver, not elsewhere classified; G43.909 Migraine, unspecified, not intractable, without status migrainosus; J45.20 Mild intermittent asthma, uncomplicated; Z68.35 Body mass index [BMI] 35.0-35.9, adult
CPT/HCPCS: 36415; 80053; 80061; 81001; 82306; 82607; 82746; 83036; 84439; 85025; 87086; 87147; 96127

== ENCOUNTER 2024-11-24 15:47 | Outpatient (AMB) | payer OTHER, SELFPAY ==
[2024-11-24 15:49] VITALS: BP 126/72; PULSE 76; TEMP 36.3; O2SAT 97; BMI 35.5
--- NOTE | 2024-11-24 15:49 | MHC.PC.OV ---
Vital Signs 11/24/24 15:49 Height 5 ft 2 in Weight 194 lb BMI 35.5 BP 126/72 Blood Pressure Location Lt brachial Position Sitting Pulse 76 Pulse Source Pulse Oximeter Temp 97.3 F Temp Source Temporal Artery Scan Pulse Oximetry (%) 97 Oxygen Delivery Method Room Air Intake Visit Reasons: Severe Migraines Accompanied by: Daughter Allergies Iodinated Contrast Media (IV CONTRAST) Allergy (Severe, Verified 11/24/24 15:55) ANAPHYLAXIS iodine Allergy (Unknown, Verified 11/24/24 15:55) Hives CT Scan Dye Allergy (Unknown, Uncoded 11/24/24 15:55) Hives dust mite Allergy (Unknown, Uncoded 11/24/24 15:55) Itching Medication List - Last Reconciled 11/24/24 by Humaira Maria MD albuterol sulfate 90 mcg/actuation (ProAir HFA) 2 puffs inhalation Q6H PRN fzrgdsb-[id number]-qcfiwcwt 250-250-65 mg (Excedrin Migraine) 2 tabs PO Q6H PRN clotrimazole 1% 1 appl topical BID 4 weeks cyclobenzaprine 5 mg PO TID PRN 30 days diazepam 2 mg PO BID PRN [Left knee brace As directed] sumatriptan succinate 100 mg orally QD PRN; Synthroid (levothyroxine) 100 mcg PO DAILY 90 days NS Tobacco use date assessed: 11/24/24 Dental Screening Dental Screen Date: 11/24/24 Did you have a dental visit in the last 12 months?: No Did you have a dental problem in the last 6 months where you did not have access to dental care?: No Was dental information given to patient?: Patient has dentist [facility] Medical History Obesity (BMI 30.0-34.9) LFT elevation Chest pain Thoracic back pain History of Overweight (BMI 25.0-29.9) Anxiety and depression Migraine GERD (gastroesophageal reflux disease) Hypothyroid Surgical History H/O eye surgery History of stapedectomy Family History Maternal Aunt Heart attack Thyroid cancer Sister Age: 45 Breast cancer, Onset Age: 36 Father Alcohol abuse Mental health disorder Substance use disorder Social History Housing: House Alcohol intake: current Alcohol intake frequency: holidays/special occasions only Comment: once Q 2 months1-2 beers Patient Tobacco Use Status: Never used Tobacco Tobacco use type: Cigarette Years Smoked: edibles e-Cigarette/Vaping Use: Never Used Second Hand Smoke Exposure: No service: No Current occupational status: employed Current occupational exposures/hazards: No Cognitive needs: No Hearing needs: No Vision needs: No Questionnaire PHQ-9 Over the last 2 weeks, how often have you been bothered by any of the following problems? 1. Little interest or pleasure in doing things: not at all 2. Feeling down, depressed, or hopeless: not at all 3. Trouble falling or staying asleep, or sleeping too much: not at all 4. Feeling tired or having little energy: not at all 5. Poor appetite or overeating: not at all 6. Feeling bad about yourself - or that you are a failure or have let yourself or your family down: not at all 7. Trouble concentrating on things, such as reading the newspaper or watching television: not at all 8. Moving or speaking so slowly that other people could have noticed. Or the opposite - being so fidgety or restless that you have been moving around a lot more than usual: not at all 9. Thoughts that you would be better off or of hurting yourself in some way: not at all Total score: 0 Depression Screening Interpretation: Negative Depression Screening Done: Yes Source: Developed by Drs. Jluis Mcmillan, Rose Mary Vargas, Killian Delong and colleagues, with an educational debo from [employer]. Thrive Questionnaire Date Thrive assessed: 04/14/24 I am a: Patient What is your living situation today?: I have a steady place to live Within the past 12 months, did the food you bought not last and you didn't have the money to get more?: Often true Within the past 12 months, did you worry whether your food would run out before you got money to buy more?: I choose not to answer this question Do you have trouble paying for medicines?: I choose not to answer this question Do you have trouble getting transportation to medical appointments?: I choose not to answer this question Do you have trouble paying your heating and electricity bill?: I choose not to answer this question Do you have trouble taking care of your child, family member or friend?: I choose not to answer this question Do you have trouble with day-to-day activities such as bathing, preparing meals, shopping, managing finances, etc.?: I choose not to answer this question Are you currently unemployed and looking for a job?: I choose not to answer this question Are you interested in more education?: I choose not to answer this question Please select the resources that you would like help with: None Currently or been in a relationship where the following occur: No concerns reported THRIVE Score: 1 AUDIT C Alcohol Use Questionnaire (AUDIT-C) 1. How often do you have a drink containing alcohol?: Monthly or less 2. How many drinks containing alcohol do you have on a typical day when you are drinking?: 1 or 2 3. How often do you have six or more drinks on one occasion?: Never Total Score: 1 PATEL-7 AMB Questionnaire PATEL-7 Date PATEL - 7 assessed: 04/14/24 Feeling nervous, anxious, or on edge: 0 = Not at all Not being able to stop or control worryin = Not at all Worrying too much about different things: 0 = Not at all Trouble relaxin = Not at all Being so restless that it is hard to sit still: 0 = Not at all Becoming easily annoyed or irritable: 0 = Not at all Feeling afraid as if something awful might happen: 0 = Not at all Total PATEL-7 score (0-4 normal; 5-9 mild; 10-14 moderate; 15-21 severe): 0 Source: Developed by Drs. Jluis Mcmillan, Rose Mary Vargas, Killian Delong and colleagues, with an educational debo from [employer]. Physical exam (Primary Care) Vital Signs: Last Vital Signs Temp 97.3 F 11/24/24 15:49 Pulse 76 11/24/24 15:49 BP 126/72 11/24/24 15:49 Pulse Ox 97 11/24/24 15:49 Oxygen Delivery Method Room Air 11/24/24 15:49 BMI result Body Mass Index 35.5 Tobacco/Smoking Status: Tobacco use Status Tobacco use date assessed 11/24/24 11/24/24 15:57 Patient Tobacco Use Status Never used Tobacco 11/24/24 15:57 Tobacco use type Cigarette 11/24/24 15:57 e-Cigarette/Vaping Use Never Used 11/24/24 15:57 PHQ-9: PHQ-9 Score PHQ-9: Total score 0 11/24/24 15:57 Depression Screening Interpretation: Negative Thrive Assessment: Date of Thrive Assessment Date Thrive assessed 04/14/24 11/24/24 15:57 Currently or been in a relationship where the following occur: No concerns reported Const General: alert; No acute distress Eyes Conjunctivae: conjunctivae normal Resp Auscultation: clear to auscultation bilaterally Cardio Rate: regular rate Rhythm: regular rhythm GI Inspection: Yes normal to inspection Extrem General: Yes normal to inspection and No edema Coding Level of Care Code Est Pt Level 4 (11633) Complex EM visit Add On G2211 Diagnoses Impaired fasting blood sugar R73.01 Acquired hypothyroidism E03.9 Hypothyroidism type: acquired Obesity (BMI 30-39.9) E66.9 Gastroesophageal reflux disease without esophagitis K21.9 Esophagitis presence: without esophagitis Fatty liver K76.0 Breast cancer screening by mammogram Z12.31 Migraine G43.909 Mild intermittent asthma without complication J45.20 Asthma severity: mild Asthma persistence: intermittent Asthma complication type: uncomplicated Headache R51.9 Assessment & Plan Assessment & Plan (1) Impaired fasting blood sugar: Code(s): R73.01 - Impaired fasting glucose Category: Medical Plan: Decrease the amount of carbohydrate intake, pasta, bread, rice and potatoes are all sugar and that is aside from all the sweet stuff, remember that fruits are good but they are Sweet also. (2) Hypothyroid: Code(s): E03.9 - Hypothyroidism, unspecified Category: Medical Qualifiers: Hypothyroidism type: acquired Qualified Code(s): E03.9 - Hypothyroidism, unspecified Plan: Patient on Synthroid and needs blood work (3) Obesity (BMI 30-39.9): Code(s): E66.9 - Obesity, unspecified Category: Medical Plan: Diet and exercise (4) GERD (gastroesophageal reflux disease): Code(s): K21.9 - Gastro-esophageal reflux disease without esophagitis Category: Medical Qualifiers: Esophagitis presence: without esophagitis Qualified Code(s): K21.9 - Gastro-esophageal reflux disease without esophagitis Plan: Avoid the foods that causes that usually spicy foods, tomato products, juices, coffee, soda and foods that your sensitive to. After eating do not lie down, allow 3-4 hours before in lie down. And keep the head of bed above 30 degrees to avoid the acid from going up. (5) Fatty liver: Code(s): K76.0 - Fatty (change of) liver, not elsewhere classified Category: Medical Plan: Low-fat diet and exercise (6) Breast cancer screening by mammogram: Code(s): Z12.31 - Encounter for screening mammogram for malignant neoplasm of breast Category: Medical Plan: Reminded about mammogram (7) Migraine: Code(s): G43.909 - Migraine, unspecified, not intractable, without status migrainosus Category: Medical Plan: Patient is advised to eat healthy, keep well hydrated, keep active and have adequate sleep. (8) Asthma: Code(s): J45.909 - Unspecified asthma, uncomplicated Category: Medical Qualifiers: Asthma severity: mild Asthma persistence: intermittent Asthma complication type: uncomplicated Qualified Code(s): J45.20 - Mild intermittent asthma, uncomplicated Plan: On albuterol inhaler as needed (9) Headache: Code(s): R51.9 - Headache, unspecified Category: Medical Plan History of Present Illness The patient is a 39-year-old female presenting for a follow-up visit. The patient has a history of obesity and asthma, managed with an albuterol inhaler as needed. Hypothyroidism is treated with levothyroxine, with recent normal thyroid function tests. Gastroesophageal Reflux Disease (GERD) is managed with dietary modifications. Hepatic steatosis and hypercholesterolemia are noted, with LDL cholesterol at 145 mg/dL. The patient experiences migraines, with daily headaches in October, partially relieved by sumatriptan and Excedrin. Impaired glucose tolerance was identified with elevated blood sugar levels. Preventative care includes a mammogram reminder due to family history of breast cancer. Health Maintenance - Mammogram reminder due to family history of breast cancer - Low-fat diet and exercise recommended for GERD management - Hydration emphasized to prevent migraine triggers Social History - Exercise: Engages in exercise as part of GERD management - Diet: Follows a low-fat diet for GERD management Review of Systems - Neurological: Reports daily headaches in October, denies focal neurological deficits - Respiratory: Reports slight dyspnea since migraines, denies wheezing - Gastrointestinal: Reports nausea and abdominal discomfort due to medication use, denies burning sensation during urination Physical Exam - Neurological: Cranial nerves II-XII intact, no focal deficits noted - Musculoskeletal: Normal strength and tone in upper and lower extremities Results - Labs: Normal blood count, normal electrolytes, normal renal function, elevated blood sugar at 100 mg/dL, LDL cholesterol at 145 mg/dL, low B12 levels, normal thyroid function Plan Patient was informed and verbally consented to the use of an ambient scribe for clinic note documentation during this visit. 1. Migraines The patient experiences daily migraines, partially relieved by sumatriptan and Excedrin. A CAT scan is planned to rule out intracranial issues, and hydration and dietary management are advised to prevent triggers. 2. Hypothyroidism The patient continues on levothyroxine with normal thyroid function tests. Blood work is scheduled to monitor thyroid levels, emphasizing medication adherence. 3. Gastroesophageal Reflux Disease (Gerd) The patient is advised to follow a low-fat diet and exercise regularly to manage GERD. Preventative care includes a mammogram reminder. 4. Impaired Glucose Tolerance The patient has impaired glucose tolerance with elevated blood sugar levels. Dietary changes and regular monitoring are recommended to prevent diabetes. Discussion Notes During the visit, I discussed the management of migraines with the patient, including the use of sumatriptan and Excedrin, and the potential need for a CAT scan to rule out intracranial issues. We also reviewed the importance of hydration and dietary management to prevent migraine triggers. For hypothyroidism, I emphasized the need for medication adherence and scheduled blood work to monitor thyroid levels. We discussed the management of GERD through dietary modifications and exercise, and I reminded the patient about the importance of a mammogram due to her family history of breast cancer. For impaired glucose tolerance, I recommended dietary changes and regular monitoring to prevent progression to diabetes. Patient Instructions - Continue using sumatriptan and Excedrin as needed for migraines. - Schedule and complete a CAT scan to check for any intracranial issues. - Maintain hydration and follow dietary recommendations to prevent migraine triggers. - Adhere to levothyroxine regimen and complete scheduled blood work. - Follow a low-fat diet and exercise regularly to manage GERD. - Schedule a mammogram as part of preventative care. - Monitor blood sugar levels and make dietary changes to prevent diabetes. Orders: Orders CT head/brain wo IV con Today R51.9 - Headache, unspecified UA CC w/rflx Micro + Cult Today R30.0 - Dysuria, R51.9 - Headache, unspecified Medications: Changed From sumatriptan succinate (Imitrex) 50 mg orally QD PRN; 14 tabs 3RF migraine headache G43.909 - Migraine, unspecified, not intractable, without status migrainosus To sumatriptan succinate 100 mg orally QD PRN; 10 tabs 3RF migraine headache G43.909 - Migraine, unspecified, not intractable, without status migrainosus
--- OUTSIDE RECORDS SUMMARY | 2024-11-24 16:51 | XMS_ITS | Clinical Summary ---
Author Organization [facility] Address [address] [place] [id number] Phone Care Team Providers Care Wool Washer Feeder Name Role Phone Unavailable Primary Care Provider [...] 06/23/2009 06/24/1999, 12/23/1997, 08/22/1994, Additional history exists HPV Vaccines (1 - 3-dose SCDM series) 01/08/2011 Influenza Vaccines (#1) 2024 COVID-19 Vaccine ( season) 2024 MMR Vaccines Completed 09/22/1990 HIB Vaccines Aged Out 08/22/1996 No longer eligi ble based on patient's age to complete this topic IPV Vaccines Completed 12/23/1997, 07/26, 05/23/1994, Additional history exists Hepatitis B Vaccines Completed 06/06/1998, 01/04/1997, 01/25/1996 Hepatitis A Vaccines Aged Out No long [...]
--- OUTSIDE RECORDS SUMMARY | 2024-11-24 16:51 | XMS_ITS | Clinical Summary ---
Author Organization [facility] Address [address] [place] [address] Phone Care Team Providers Care Stone Driller Name Role Phone Humaira Maria MD Primary Care Provider [phone] Allergies Active Allergy Reactions Criticality Noted Date Comments Iodine Swelling High 08/18/2017 Other Reaction(s): Hives/Urticaria Medications levothyroxine (SYNTHROID, LEVOTHROID) 100 mcg tablet Take 100 mcg by mouth daily. Active SUMAtriptan (IMITREX) 50 mg tablet Take 1 tablet (50 mg total) by mouth 1 (one) time if needed. 02/07/2024 Active Vitamin D3 50 mcg (2,000 unit) capsule TAKE 1 CAPSULE BY MOUTH EVERY DAY 90 capsule 3 05/23/2024 Active Active Problems Problem Noted Date Diagnosed Date Cervical polyp 02/21/2022 Overview (01/15/2024): 04/06/23 Cervical polypectomy ASCUS with positive high risk HPV cervical 04/27 Overview (01/15/2024): 08/2015- ascus + HPV 09/2015- Colpo Bx negative Plan repeat pap smear 1 yr 07/2017- pap smear ASCS negative HPV 04/2019- repeat papsmear- neg PAP AND NEG HPV PLAN REPEAT 5 YRS Surgical History Surgery Date Site/Laterality Comments OTHER [...] Date Smoking Tobacco: Never Smokeless Tobacco: Never Tobacco Cessation:Counseling Given: Not Answered Alcohol Use Standard Drinks/Week Comments Not Currently 0 (1 standard drink = 0.6 oz pur e alcohol) Comments No Sex and Gender Information Value Date Recorded Sex Assigned at Not on file Legal Sex Female 12:40 PM EST Gender Identity Not on file Sexual Orientation Not on file Obstetrics History * This document contains information received from the source organization and may not represent a complete record from that organization. Para Term AB IAB SAB Ectopic Multiple Livin g Live Births 4 2 2 2 2 Date Outcome GA Total Labor Labor/2nd/3rd Weight Sex Type Anes PTL Nani A1 A5 Name Clin 003 Term 38w 0d 3226 g (113.8 oz) F Vag-S pont Epidur al N Livin g Complications:None Delivery Location:[facility] 006 Term 39w 0d 3402 g (120 oz) F Vag-S pont None N Livin g Complications:None Delivery Location:[facility] Last Filed Vital Signs Vital Sign Reading Time Taken Comments Blood Pressure 93/65 04/26/2024 10:48 AM EST Pulse 72 04/26/2024 10:48 AM EST Temperature - - Respiratory Rate 18 04/01/2024 1:19 PM EST Oxygen Saturation - - Inhaled Oxygen Concentration - - Weight 90.3 kg (199 lb) 04/26/2024 10:48 AM EST Height 157.5 cm (5' 2 ) 04/01/2024 1:19 PM EST Body Mass Index 36.4 04/01/2024 1:19 PM EST Plan of Treatment Health Maintenance Due Date Last Done Comments Breast Cancer Screening 1984 HPV Vaccines (1 - 3-dose SCDM series) 01/08/2011 Social Influencers of Health Screening 01/21/2022 Depression Screening 02/24/2024 COVID-19 Vaccine ( season) 2024 Influenza Vaccine (#1) 2024 Cholesterol Screening (Lipid Panel) 04/01/2026 04/01/2021 Cervical Cancer Screening: Pap Smear 04/06/2026 04/06/2023, 04/27/2019, 08/18/2017, Additional history exists DTaP,Tdap,and Td Vaccines (6 - Td or Tdap) 06/25/2031 06/24/2021, 06/24/1999, 12/23/1997, Additional history exists RSV Immunization Adult Patients (1 - 1-dose 75+ series) 01/08/2059 MMR Vaccines Completed 09/22/1990 HIB Vaccines Aged Out 08/22/1996 No longer eligi ble based on patient's age to complete this topic IPV Vaccines Completed 12/23/1997, 07/26, 05/23/1994, Additional history exists Hepatitis B Vaccines Completed 06/06/1998, 01/04/1997, 01/25/1996 HIV Screening Completed 04/01/2021 Hepatitis C Screening Completed 04/01/2021 Hepatitis A Vaccines Aged Out No long er eligible based on patient's age to complete this topic Meningococcal ACWY Vaccine Aged Out N o longer eligible based on patient's age to complete this topic Meningococcal B Vaccine Aged Out No l onger eligible based on patient's age to complete this topic Pneumococcal Vaccine: Pediatrics (0 to 5 Years) and At-Risk Patients (6 to 49 Years) Aged Out No longer eligible based [...] Health Maintenance Results * Pap Smear (04/06/2023) Pap smear negative, abstracted [facility] Provider HEALTH MAINTENANCE Final Result * HIV Screening (04/01/2021) HIV Screening abstracted [facility] Provider HEALTH MAINTENANCE Final Result * Hepatitis C Screening (04/01/2021) Hepatitis C Screening abstracted [facility] Provider HEALTH MAINTENANCE Final Result * (ABNORMAL) Lipid panel (04/01/2021) LDL/HDL Ratio 5(A) 0 - 4 Triglycerides 132 0 - 150 mg/dL Cholesterol 204(A) 0 - 200 mg/dL HDL 45 >=40 mg/dL LDL Cholesterol 133(A) 0 - 100 mg/dL Blood Venous blood specimen / Unknown [facility] Provider LAB BLOOD ORDERABLES Tona l Result from Last 3 Months or Most Recently Relevant to Health Maintenance Insurance [facility] [employer] Care Teams Stone Driller Relationship Specialty Start Date End Date Humaira Maria MD [address] [place] [address] [phone] [facility] [place] [address] PCP - General Internal Medicine 09/02/18
--- OUTSIDE RECORDS SUMMARY | 2024-11-24 16:51 | XMS_ITS | Clinical Summary ---
Author Organization [facility] Address [address] [place], [place] [id number] Phone Care Team Providers Care Mammal Control Agent Name Role Phone Humaira Maria MD Primary Care Provider [phone] Allergies No known active allergies Medications meloxicam (MOBIC) 15 MG tablet Take 1 tablet (15 mg total) by mouth daily for 14 days. 14 tablet 02/06/2021 Active Social History Tobacco Use Types Packs/Day Years Used Date Smoking Tobacco: Never Alcohol Use Standard Drinks/Week Comments Never 0 (1 standard drink = 0.6 oz pur e alcohol) Education Answer Date Recorded Are you interested in more education? Not on reji e 06/20/2022 Are you concerned about learning? Not on file 06/20/2022 No 06/20/2022 No 06/20/2022 Digital Access Answer Date Recorded No 07/21/2022 No 07/21/2022 No 07/21/2022 Reliable internet access at home? Not on file 07/21/2022 Device with a working camera? Not on file Comments Unknown Sex and Gender Information Value Date Recorded Sex Assigned at Female 02/06/2021 12:54 PM EST Legal Sex Female 9:15 PM EDT Gender Identity Female 02/06/2021 12:54 PM EST Sexual Orientation Choose not to disclose 2020 12:54 PM EST Last Filed Vital Signs Vital Sign Reading Time Taken Comments Blood Pressure 107/67 02/06/2021 12:54 PM EST Pulse 70 02/06/2021 12:54 PM EST Temperature 35.9 C (96.6 F) 02/06/2021 12:53 PM EST Respiratory Rate 16 02/06/2021 12:54 PM EST Oxygen Saturation 100% 02/06/2021 12:54 PM EST Inhaled Oxygen Concentration - - Weight - - Height - - Body Mass Index - - Plan of Treatment Not on file Medical Devices Not on file Insurance ACO ACO ACO ACO ACO ACO ACO ACO ACO Care Teams Mammal Control Agent Relationship Specialty Start Date End Date Humaira Maria MD [address] [place] [address] PCP - General 12/09/16 Additional Source Comments The information contained in this document represents components of the legal health record. It is not the complete legal health record.[facility]
== END 2024-11-24 16:41 | disposition home or self-care (01) ==
LOC: HO.HMCH 15:48
PROVIDERS: PCP Internal Medicine; Visit Provider Internal Medicine
DX: R73.01 Impaired fasting glucose (principal); E03.9 Hypothyroidism, unspecified; E66.9 Obesity, unspecified; Z68.35 Body mass index [BMI] 35.0-35.9, adult; K21.9 Gastro-esophageal reflux disease without esophagitis; K76.0 Fatty (change of) liver, not elsewhere classified; Z12.31 Encounter for screening mammogram for malignant neoplasm of breast; G43.909 Migraine, unspecified, not intractable, without status migrainosus; J45.20 Mild intermittent asthma, uncomplicated; R51.9 Headache, unspecified

== ENCOUNTER 2024-12-16 08:05 | Outpatient (AMB) | payer OTHER, SELFPAY ==
--- NOTE | 2024-12-16 08:08 | A.OFFVIS_ITS ---
Vital Signs 12/16/24 08:13 Height 5 ft 2 in Weight 190 lb BMI 34.7 BP 110/80 Blood Pressure Location Rt brachial Position Sitting Respiration 16 Pulse 92 Pulse Oximetry (%) 95 Oxygen Delivery Method Room Air Intake Visit Reasons: Headache Allergies Iodinated Contrast Media (IV CONTRAST) Allergy (Severe, Verified 12/16/24 08:13) ANAPHYLAXIS iodine Allergy (Unknown, Verified 12/16/24 08:13) Hives CT Scan Dye Allergy (Unknown, Uncoded 12/16/24 08:13) Hives dust mite Allergy (Unknown, Uncoded 12/16/24 08:13) Itching HPI Comments Details: Mae is a 39-year-old female with a past medical history of hypothyroidism who was previously seen in the clinic by Dr. Henson. Last office note is from 2016. According to notes at that time, she had been having headaches for many years particularly around the right eye in the right side of her head accompanied by light and sound sensitivity and nausea. A CT of the brain in 2009 was within normal limits. It appears that she has been started on naratriptan 2.5 mg for abortive therapy and was advised regarding some lifestyle changes to assist with migraine prevention. Today Ines reports that over the past year and a half her migraines have increased. Especially since the begining of November she has had a near constant headache. She saw her pcp the first week of November for a severe headache with sensation that her head was swollen. She has been experiencing a constant daily headache since mid September 2024. She is taking the sumatriptan only about 6 times per month. She is taking excedrine on average about 4-6 times per day but she has not taken excedrine since last week. She does have significant sensitivity to light and nausea. She does not have sensitivity to sound. Smells tend to bother her and when head pain is severe she has some dizziness. She denies vision changes or disturbances. There is some increase in her pain with laying down. She does have some tinnitus that is described as a high pitch constant noise. The sumatriptan has been helpful when headaches were less persistent but more recently it has been less effective. She does note a family history of brain tumors Other related background information: Sleep: Some fragmented sleep but she gets about 5 hours per night Stressors: Feels that she does not have a significant amount of stress Hydration: At least 50oz per day Caffeine intake:1 cup coffee per day Alcohol intake:None Substance use:Occasional marijuana for sleep Tobacco use:None Last eye exam:2-3 years ago Last dental visit: About 1 year ago. Does have some reported clenching or pressing of her tongue against her teeth. History of head injury:None Family planning considerations:None. had vasectomy Past medication trials: Topiramate- Tried but did not like the way it made her feel Prior workup: None available [facility] Medical History Obesity (BMI 30.0-34.9) LFT elevation Chest pain Thoracic back pain History of Overweight (BMI 25.0-29.9) Anxiety and depression Migraine GERD (gastroesophageal reflux disease) Hypothyroid Surgical History H/O eye surgery History of stapedectomy Family History Maternal Aunt Heart attack Thyroid cancer Sister Age: 45 Breast cancer, Onset Age: 36 Father Alcohol abuse Mental health disorder Substance use disorder Social History Housing: House Alcohol intake: current Alcohol intake frequency: holidays/special occasions only Comment: once Q 2 months1-2 beers Patient Tobacco Use Status: Never used Tobacco Tobacco use type: Cigarette Years Smoked: edibles e-Cigarette/Vaping Use: Never Used Second Hand Smoke Exposure: No service: No Current occupational status: employed Current occupational exposures/hazards: No Cognitive needs: No Hearing needs: No Vision needs: No Review of Systems Const All systems reviewed & are unremarkable except as noted in HPI and below Physical Exam Vital Signs: Last Vital Signs Pulse 92 12/16/24 08:13 Resp 16 12/16/24 08:13 BP 110/80 12/16/24 08:13 Pulse Ox 95 12/16/24 08:13 Oxygen Delivery Method Room Air 12/16/24 08:13 BMI result Body Mass Index 34.7 Const General: cooperative, healthy appearing, comfortable and no acute distress Nutritional Appearance: well nourished Orientation/consciousness: patient oriented x3 Limitations: no limitations HEENT Head: Yes normal to inspection and Yes normocephalic Eyes General: appearance normal, both eyes and all related structures Visual Graham: normal visual graham by confrontation Alignment and Position: alignment normal Periorbital: periorbital findings normal Eyelids: Yes eyelids normal Conjunctivae: conjunctivae normal Sclerae: sclerae normal Neuro General: patient oriented x3 and deep tendon reflexes 2+ bilaterally Cranial nerves: Yes CN's II-XII intact bilaterally and Yes Facial sensation intact/muscles of mastication intact Cognition (Neuro): normal cognition Gait exam (Neuro): Normal gait present Motor exam (neuro): 5/5 motor strength present throughout and no tremor noted Sensory Exam: double simultaneous stimulation for sensation normal Romberg Test: Negative Pupils: Normal pupillary reactivity/response: bilateral Psych Appearance: grossly normal Mental Status: mental status grossly normal Speech and movement: Normal speech and movement present and Clear speech present Affect: normal affect Attitude: cooperative Thought process: Normal thought process present Thought content: Normal thought content present Insight: Good insight present (Psych) Judgement: Good judgement present (Psych) Assessment & Plan Assessment & Plan (1) Migraine without aura and without status migrainosus, not intractable: Code(s): G43.009 - Migraine without aura, not intractable, without status migrainosus Category: Medical Plan Mae is a 39-year-old female with a past medical history of hypothyroidism here today for a headache evaluation. She is experiencing daily headaches and poor response to sumatriptan. In the past sumatriptan had worked well when headahces were less frequent. We discussed next steps including acute therapy. She was agreeable to a course of sumatriptan in efforts to break migraine cycle. For maintenance she was hesitant to try additional oral therapies but after further discussion was agreeable to magnesium and riboflaven supplementation. After headaches are better controlled we discussed that her sumatriptan may be more effective. Because there has been a significant increase in migraines however, I would like to obtain an MRI brain as there is not any MRI or CT available for review. We also discussed an eye exam and the importance and how it relates to headache care. -MRI brain without contrast -eye exam -prednisone taper for acute therapy -magnesium 400mg at bedtime and riboflaven 400mg daily -follow-up in 2 months or sooner if needed Medications: New prednisone Day1: Take 3 tablets by mouth in the morning Day2: Take 2 tablets by mouth in the morning Day3: Take 1 tablet by mouth in the morning Day4: Take 1/2 tablet by mouth in the morning Day5: Tane 1/2 tablet by mouth in the morning 7 tabs 0RF magnesium oxide 400 mg PO DAILY 90 tabs 3RF 90 days riboflavin (vitamin B2) 400 mg PO DAILY 90 tabs 3RF 90 days Coding Level of Care Code Est Pt Level 4 (78335) Diagnoses Migraine without aura and without status migrainosus, not intractable G43.009
[2024-12-16 08:13] VITALS: BP 110/80; PULSE 92; RESP 16; O2SAT 95; BMI 34.7
== END 2024-12-16 08:40 | disposition home or self-care (01) ==
LOC: HO.HSM 08:06
PROVIDERS: PCP Internal Medicine; Visit Provider Nurse Practitioner
DX: G43.009 Migraine without aura, not intractable, without status migrainosus (principal)
CPT/HCPCS: 99214